=== PATIENT | male | born 1940 | race Caucasian/White ===

== ENCOUNTER 2016-10-19 23:03 | Emergency (ER) | payer BC ==
[~2016-10-19] VITALS: Ht 175.3 cm; Wt 118.8 kg
[2016-10-19 23:12] VITALS: BP 156/69
[2016-10-19] MEDS ORDERED: CYCL5TAB PO (23:46)
--- NOTE | 2016-10-19 23:46 | PHYS DOC ---
Past Medical History Past Medical History: CVA, Diabetes-Type II, Hypertension, Other Additional Past Medical Histor: EMPHYSEMA Past Surgical History: Other Additional Past Surgical Histo: R ANKLE Alcohol Use: Heavy Drug Use: None Adult General Chief Complaint Chief Complaint: Neck Pain [facility] HPI Patient is a 76 year old male presents to the emergency department stating that he has having left upper back and neck pain. He states that he fell asleep in his chair at home on Monday night watching TV and on Monday he developed the pain and discomfort. Patient has not taken anything for the pain or discomfort. He is unable to describe the pain. He denies any numbness or tingling into his extremities. Patient denies any trauma or injuries to his back. Patient denies any fever, chills or any nausea vomiting. Review of Systems Review of Systems Constitutional: Denies fever or chills [] Eyes: Denies change in visual acuity, redness, or eye pain [] HENT: Denies nasal congestion or sore throat [] Respiratory: Denies cough or shortness of breath [] Cardiovascular: No additional information not addressed in HPI [] GI: Denies abdominal pain, nausea, vomiting, bloody stools or diarrhea [] : Denies dysuria or hematuria [] Musculoskeletal: Left upper back and neck pain denies joint pain Integument: Denies rash or skin lesions [] Neurologic: Denies headache, focal weakness or sensory changes [] Endocrine: Denies polyuria or polydipsia [] Physical Exam Physical Exam Constitutional: Well developed, well nourished, no acute distress, non-toxic appearance. [] HENT: Normocephalic, atraumatic, bilateral external ears normal, oropharynx moist, no oral exudates, nose normal. [] Eyes: PERRLA, EOMI, conjunctiva normal, no discharge. [] Neck: Normal range of motion, no tenderness, supple, no stridor. [] Cardiovascular:Heart rate regular rhythm, no murmur [] Lungs & Thorax: Bilateral breath sounds clear to auscultation [] Skin: Warm, dry, no erythema, no rash. [] Back: No cervical spine, thoracic spine tenderness, no crepitus, no deformities no step-offs noted. Patient did have tenderness in the left upper shoulder to back area up into the paraspinal area of the neck. Patient with increase tenderness noted when turning his head to the left into the right. Patient is able to put his chin to his chest with minimal discomfort. Extremities: No tenderness, no cyanosis, no clubbing, ROM intact, no edema. [] Neurologic: Alert and oriented X 3, normal motor function, normal sensory function, no focal deficits noted. [] Psychologic: Affect normal, judgement normal, mood normal. [] Current Patient Data Vital Signs Vital Signs Date Time Temp Pulse Resp B/P (MAP) Pulse Ox O2 Delivery O2 Flow Rate FiO2 10/19/16 23:12 98.1 73 22 92 Room Air 98.1 EKG EKG [] Radiology/Procedures Radiology/Procedures [] Course & Med Decision Making Course & Med Decision Making Pertinent Labs and Imaging studies reviewed. (See chart for details) Patient will be provided with Flexeril 5 mg to take as needed for muscle spasms and discomfort. Recommended ibuprofen 400 mg every 8 hours. Patient was instructed Flexeril will cause drowsiness do not take any be alert and oriented. Also recommended ice packs or warm moist packs to the area several times a day. Patient will be discharged home in stable condition signs and symptoms to return back to emergency department been provided. Patient was encouraged to follow-up with his primary care in 7-10 days. Patient agrees with discharge instructions treatment regimens and follow-up recommendations. All questions and concerns were answered patient's bedside. [] Dragon Disclaimer Dragon Disclaimer This electronic medical record was generated, in whole or in part, using a voice recognition dictation system. Departure Departure Impression: Primary Impression: Acute torticollis Disposition: 01 HOME, SELF-CARE Condition: STABLE Referrals: ROCHELLE LAWRENCE MD (PCP) Patient Instructions: Torticollis, Acute Additional Instructions: Activity as tolerated. Medications as prescribed. Ibuprofen 400 mg every 8 hours with food stop taking if you develop an upset stomach. Ice packs on 20 minutes off 20 minutes several times a day. He may also use warm moist packs to help with the pain and discomfort. Follow-up with your primary care physician in the next 7-10 days if he continued have pain and discomfort. Scripts Cyclobenzaprine Hcl (CYCLOBENZAPRINE HCL) 5 Mg Tablet 1 TAB PO TID Y for MUSCLE SPASMS, #20 TAB Prov: LORNE BOLIVAR [employer] 10/19/16 LORNE BOLIVAR APRN Oct 19, 2016 23:46
== END 2016-10-19 23:57 | disposition home or self-care (01) ==
LOC: ER 23:03
DX: M43.6 Torticollis (principal); M54.6 Pain in thoracic spine; E11.9 Type 2 diabetes mellitus without complications; J43.9 Emphysema, unspecified; I10 Essential (primary) hypertension; F10.10 Alcohol abuse, uncomplicated; Z86.73 Personal history of transient ischemic attack (TIA), and cerebral infarction without residual deficits
CPT/HCPCS: 99283

== ENCOUNTER 2016-12-01 22:34 | Emergency (ER) | payer BC ==
[~2016-12-01 22:34] MED LIST: CYCL5TAB PO
[2016-12-01] MEDS ORDERED: PRED20TA PO (23:13)
[2016-12-01] MEDS ORDERED: CEPH500T PO (23:13)
[2016-12-01] MEDS ORDERED: DIPH25CA58 PO (23:13)
--- NOTE | 2016-12-01 23:13 | PHYS DOC ---
Past Medical History Past Medical History: CVA, Diabetes-Type II, Hypertension, Other Additional Past Medical Histor: EMPHYSEMA Past Surgical History: Other Additional Past Surgical Histo: R ANKLE Alcohol Use: Heavy Drug Use: None Adult General Chief Complaint Chief Complaint: INSECT BITE HPI HPI Patient is a 76 year old male presents to the emergency department with c/o itching and discomfort to the right hand. Patient states this started yesterday while at work. He denies drainage or discharge from the site. He is concerned about an infection. Review of Systems Review of Systems Constitutional: Denies fever or chills [] Eyes: Denies change in visual acuity, redness, or eye pain [] HENT: Denies nasal congestion or sore throat [] Respiratory: Denies cough or shortness of breath [] Cardiovascular: No additional information not addressed in HPI [] GI: Denies abdominal pain, nausea, vomiting, bloody stools or diarrhea [] : Denies dysuria or hematuria [] Musculoskeletal: Denies back pain or joint pain [] Integument: Denies rash or skin lesions. C/o redness noted to the right palm Neurologic: Denies headache, focal weakness or sensory changes [] Endocrine: Denies polyuria or polydipsia [] Allergies Allergies Allergies Coded Allergies Type Severity Reaction Last Updated Verified No Known Drug Allergies 12/01/16 No Physical Exam Physical Exam Constitutional: Well developed, well nourished, no acute distress, non-toxic appearance. [] HENT: Normocephalic, atraumatic, bilateral external ears normal, oropharynx moist, no oral exudates, nose normal. [] Eyes: PERRLA, EOMI, conjunctiva normal, no discharge. [] Neck: Normal range of motion, no tenderness, supple, no stridor. [] Cardiovascular:Heart rate regular rhythm, no murmur [] Lungs & Thorax: Bilateral breath sounds clear to auscultation [] Abdomen: Bowel sounds normal, soft, no tenderness, no masses, no pulsatile masses. [] Skin: Warm, dry, no erythema, no rash. Right hand with redness and irritation, slight drainage noted from the site. Patient will full ROM to right hand. Area appears to ivelisse no raised areas. Extremities: No tenderness, no cyanosis, no clubbing, ROM intact, no edema. [] Neurologic: Alert and oriented X 3, normal motor function, normal sensory function, no focal deficits noted. [] Psychologic: Affect normal, judgement normal, mood normal. [] EKG EKG [] Radiology/Procedures Radiology/Procedures [] Course & Med Decision Making Course & Med Decision Making Pertinent Labs and Imaging studies reviewed. (See chart for details) Patient will be discharged home in stable condition. Patient will be provided with prednisone, keflex with recommendations for benadryl. Keep the areas clean dry and cool. Signs and symptoms to return to the emergency department has been provided. All questions and concerns have been answered at patients bedside. Patient agrees with discharge instructions treatment regimen and followup recommendations. [] Dragon Disclaimer Dragon Disclaimer This electronic medical record was generated, in whole or in part, using a voice recognition dictation system. Departure Departure Impression: Primary Impression: Contact dermatitis Disposition: HOME, SELF-CARE Condition: STABLE Referrals: ROCHELLE LAWRENCE MD (PCP) Patient Instructions: Contact Dermatitis, [id number] Additional Instructions: Activity as tolerated Medication as prescribed Benadryl will cause drowsiness do not take if you need to be alert and oriented Keep the areas clean dry and cool Followup with primary care provider in 3-5 days Return to emergency department as needed for signs and symptoms that become worse. Scripts Cephalexin (CEPHALEXIN) 500 Mg Tablet 1 TAB PO BID, #20 TAB Prov: LORNE BOLIVAR APRN 12/01/16 Prednisone (PREDNISONE) 20 Mg Tablet 40 MG PO DAILY for 7 Days, #14 TAB Prov: LORNE BOLIVAR APRN 12/01/16 Diphenhydramine Hcl (BENADRYL) 25 Mg Capsule 1 CAP PO QHS, #10 CAP 0 Refills Prov: LORNE BOLIVAR APRN 12/01/16 Problem Qualifiers Primary Impression: Contact dermatitis Contact dermatitis type: unspecified Contact dermatitis trigger: unspecified trigger Qualified Codes: L25.9 - Unspecified contact dermatitis, unspecified cause LORNE BOLIVAR APRN Dec 01, 2016 23:13
== END 2016-12-01 23:25 | disposition home or self-care (01) ==
LOC: ER 22:34
DX: L25.9 Unspecified contact dermatitis, unspecified cause (principal); I10 Essential (primary) hypertension; E11.9 Type 2 diabetes mellitus without complications; J43.9 Emphysema, unspecified; Z86.73 Personal history of transient ischemic attack (TIA), and cerebral infarction without residual deficits
CPT/HCPCS: 99283

== ENCOUNTER 2019-01-10 18:02 | Inpatient (IN) | payer BC, MEDICARE ==
[~2019-01-10] VITALS: Ht 175.3 cm; Wt 120.2 kg
[~2019-01-10 18:02] MED LIST changes: +CEPH500T PO; +DIPH25CA58 PO; +PRED20TA PO
--- NOTE | 2019-01-10 18:38 | PHYS DOC ---
Past Medical History Past Medical History: COPD, CVA, Diabetes-Type II, Hypertension, Other Additional Past Medical Histor: EMPHYSEMA Past Surgical History: Other Additional Past Surgical Histo: R ANKLE Alcohol Use: Heavy Drug Use: None Adult General Chief Complaint Chief Complaint: ALTERED MENTAL STATUS HPI HPI 78-year-old male presents to the emergency department with altered mental status, intermittent. Unknown exact onset. Patient was seen at primary care physician's office today prescribe antibiotics as well as inhaler. His granddaughter was called by his primary care physician with recommendations to check on him daily. If he had not improved in next 2-3 days patient should be evaluated again and possibly admitted to the hospital. Patient slow to respond NIH is 1 secondary to answering wrong month. Otherwise NIH exam is unremarkable. Patient denies any complaints of chest pain, nausea, vomiting. He does have some shortness of breath, cough, saturations on room air when he got here 84%. Patient is supposed to have oxygen therapy at home 2-3 L (chronic) however granddaughter states he does not wear. Nothing makes his symptoms worse, nothing makes them better. Review of Systems Review of Systems Constitutional: Denies fever or chills [] Eyes: Denies change in visual acuity, redness, or eye pain [] HENT: Congestion Respiratory: Cough/SOB Cardiovascular: No additional information not addressed in HPI [] GI: Denies abdominal pain, nausea, vomiting, bloody stools or diarrhea [] : Denies dysuria or hematuria [] Musculoskeletal: Denies back pain or joint pain [] Integument: Denies rash or skin lesions [] Neurologic: Denies headache, focal weakness or sensory changes [] All other systems were reviewed and found to be within normal limits, except as documented in this note. Current Medications Current Medications Current Medications Medications (Trade) Dose Ordered Sig/Anthony Start Time Stop Time Status Last Admin Dose Admin Albuterol/ Ipratropium (Duoneb) 3 ml 1X ONCE 01/10/19 18:45 01/10/19 18:46 DC 01/10/19 18:49 3 ML Allergies Allergies Allergies Coded Allergies Type Severity Reaction Last Updated Verified No Known Drug Allergies 12/01/16 No Physical Exam Physical Exam Constitutional: Well developed, well nourished, no acute distress, non-toxic appearance. [] HENT: Normocephalic, atraumatic, bilateral external ears normal, oropharynx moist, no oral exudates, nose normal. [] Eyes: PERRLA, EOMI, conjunctiva normal, no discharge. [] Cardiovascular:Heart rate regular rhythm, no murmur [] Lungs & Thorax: Bilateral breath sounds clear to auscultation [] Abdomen: Bowel sounds normal, soft, no tenderness, no masses, no pulsatile masses. [] Skin: Warm, dry, no erythema, no rash. [] Back: No tenderness, no CVA tenderness. [] Extremities: No tenderness, no edema. [] Neurologic: Alert and oriented X 3, no focal deficits noted. [] Psychologic: Affect normal, judgement normal, mood normal. [] Current Patient Data Vital Signs Vital Signs Date Time Temp Pulse Resp B/P (MAP) Pulse Ox O2 Delivery O2 Flow Rate FiO2 01/10/19 18:47 96 Nasal Cannula 4.0 01/10/19 18:03 97.8 80 14 158/72 (100) 97.8 Lab Values Laboratory Tests Test 01/10/19 19:10 01/10/19 19:11 White Blood Count 12.1 x10^3/uL (4.0-11.0) H Red Blood Count 5.74 x10^6/uL (4.30-5.70) H Hemoglobin 17.8 g/dL (13.0-17.5) H Hematocrit 53.3 % (39.0-53.0) H Mean Corpuscular Volume 93 fL (79-100) Mean Corpuscular Hemoglobin 31 pg (25-35) Mean Corpuscular Hemoglobin Concent 33 g/dL (31-37) Red Cell Distribution Width 14.0 % (11.5-14.5) Platelet Count 176 x10^3/uL (140-400) Neutrophils (%) (Auto) 82 % (31-73) H Lymphocytes (%) (Auto) 8 % (24-48) L Monocytes (%) (Auto) 9 % (0-9) Eosinophils (%) (Auto) 1 % (0-3) Basophils (%) (Auto) 1 % (0-3) Neutrophils # (Auto) 9.9 x10^3/uL (1.8-7.7) H Lymphocytes # (Auto) 1.0 x10^3/uL (1.0-4.8) Monocytes # (Auto) 1.1 x10^3/uL (0.0-1.1) Eosinophils # (Auto) 0.1 x10^3/uL (0.0-0.7) Basophils # (Auto) 0.1 x10^3/uL (0.0-0.2) Sodium Level 135 mmol/L (136-145) L Potassium Level 4.7 mmol/L (3.5-5.1) Chloride Level 98 mmol/L (98-107) Carbon Dioxide Level 30 mmol/L (21-32) Anion Gap 7 (6-14) Blood Urea Nitrogen 23 mg/dL (8-26) Creatinine 1.3 mg/dL (0.7-1.3) Estimated GFR (Cockcroft-Gault) 53.4 BUN/Creatinine Ratio 18 (6-20) Glucose Level 166 mg/dL (70-99) H Calcium Level 9.5 mg/dL (8.5-10.1) Total Bilirubin 0.7 mg/dL (0.2-1.0) Aspartate Amino Transferase (AST) 13 U/L (15-37) L Alanine Aminotransferase (ALT) 26 U/L (16-63) Alkaline Phosphatase 58 U/L (46-116) Troponin I Quantitative < 0.017 ng/mL (0.000-0.055) ZE-Hwp-A-Type Natriuretic Peptide 119 pg/mL (0-449) Total Protein 7.9 g/dL (6.4-8.2) Albumin 4.0 g/dL (3.4-5.0) Albumin/Globulin Ratio 1.0 (1.0-1.7) Urine Collection Type Void Urine Color Yellow Urine Clarity Clear Urine pH 6.0 Urine Specific Hancock 1.015 Urine Protein 30 mg/dL (NEG-TRACE) Urine Glucose (UA) Negative mg/dL (NEG) Urine Ketones (Stick) Negative mg/dL (NEG) Urine Blood Large (NEG) Urine Nitrite Negative (NEG) Urine Bilirubin Negative (NEG) Urine Urobilinogen Dipstick 1.0 mg/dL (0.2 mg/dL) Urine Leukocyte Esterase Moderate (NEG) Urine RBC >40 /HPF (0-2) Urine WBC 11-20 /HPF (0-4) Urine Squamous Epithelial Cells Occ /LPF Urine Bacteria Many /HPF (0-FEW) Laboratory Tests 01/10/19 19:10 Laboratory Tests 01/10/19 19:10 EKG EKG EKG reviewed, normal sinus rhythm, left axis deviation, no evidence of acute ST elevation PA appreciated, nonurgent EKG, interpretation time 184[] Radiology/Procedures Radiology/Procedures [facility] [address] [place] [address] IMAGING REPORT Signed PATIENT: LONG WALLACE EACCOUNT: [id number] : 1940 LOCATION: ER AGE: 78 SEX: M EXAM STATUS: REG ER ORD. PHYSICIAN: MELONY ALEXANDER MD REASON: AMS, DIFFICULTY HOLDING STILL PROCEDURE: CT HEAD WO CONTRAST Examination: CT HEAD WO CONTRAST History: Altered mental status Comparison/Correlation: 11/16/2008 CT head without contrast Findings: Axial images of the head were obtained without contrast. Mild atrophy is present. No intracranial hemorrhage, midline shift, or mass effect although evaluation may be limited to the vertex due to motion. The right middle cerebral artery is somewhat dense as compared to the left middle cerebral artery but this is similar for correlation with the previous exam. Small left basal ganglia lacunar infarct is suggested but stable. Bony structures are unremarkable. Cavernous carotid calcification noted. Impression: No acute process. PQRS Compliance Statement: One or more of the following individualized dose reduction techniques were utilized for this examination: 1. Automated exposure control 2. Adjustment of the mA and/or kV according to patient size 3. Use of iterative reconstruction technique Electronically signed by: Raghavendra Barry MD (01/10/2019 7:57 PM) [facility] DICTATED and SIGNED BY: RAGHAVENDRA BARRY MD DATE: 01/10/191956 [] Course & Med Decision Making Course & Med Decision Making Pertinent Labs and Imaging studies reviewed. (See chart for details) []78-year-old male presents to the emergency department with altered mental sta tus, intermittent. Unknown exact onset. Patient was seen at primary care physician's office today prescribe antibiotics as well as inhaler. His granddaughter was called by his primary care physician with recommendations to check on him daily. If he had not improved in next 2-3 days patient should be evaluated again and possibly admitted to the hospital. Patient slow to respond NIH is 1 secondary to answering wrong month. Otherwise NIH exam is unremarkable. Patient denies any complaints of chest pain, nausea, vomiting. He does have some shortness of breath, cough, saturations on room air when he got here 84%. Patient is supposed to have oxygen therapy at home 2-3 L (chronic) however granddaughter states he does not wear. Nothing makes his symptoms worse, nothing makes them better. Patient improved with O2 94 - 97% on 3 - 4L NC Labs with evidence fo UTI, WBC 12.1 Re-evaluation of patient - confused, peed all over the floor, states he needs to use the restroom Discussed admit with patient Mihaela Disclaimer Dragcharo Disclaimer This electronic medical record was generated, in whole or in part, using a voice recognition dictation system. NIHSS Stroke Scale NIH Stroke Scale: NIH Stroke Scale Response (Comments) Value Level of Consciousness: 0 Alert/Responsive 0 LOC Questions: 1 Answers one correctly 1 LOC Commands: 0 Performs both tasks 0 Best Gaze: 0 Normal 0 Visual: 0 No visual loss 0 Facial Palsy: 0 Normal, symmetrical 0 Motor - Left Arm 0 No drift 0 Motor - Right Arm 0 No drift 0 Motor - Left Leg 0 No drift 0 Limb Ataxia: 0 Absent 0 Sensory: 0 No loss 0 Best Language: 0 Normal 0 Dysathria: 0 Normal 0 Extinction and Inattention: 0 Normal 0 Total 1 Departure Departure Impression: Primary Impression: AMS (altered mental status) Additional Impressions: UTI (urinary tract infection) Chronic respiratory failure Disposition: 09 ADMITTED INPATIENT Admitting Physician: [facility] [place] Referrals: ROCHELLE LAWRENCE MD (PCP) Problem Qualifiers Primary Impression: AMS (altered mental status) Altered mental status type: unspecified Qualified Codes: R41.82 - Altered mental status, unspecified Additional Impressions: UTI (urinary tract infection) Urinary tract infection type: site unspecified Hematuria presence: without hematuria Qualified Codes: N39.0 - Urinary tract infection, site not specified Chronic respiratory failure Respiratory failure complication: hypoxia Qualified Codes: J96.11 - Chronic respiratory failure with hypoxia MELONY ALEXANDER MD Jan 10, 2019 18:38
[2019-01-10] MEDS ORDERED: IPRATRPIUM/ALBUTEROL 0.5/2.5MG 3 ML NEBU. NEB ONE (18:45)
[2019-01-10 19:22] LABS: BASO # 0.1 x10^3/uL (0.0-0.2); BASO % 1 % (0-3); EOS # 0.1 x10^3/uL (0.0-0.7); EOS % 1 % (0-3); HEMATOCRIT 53.3 % (39.0-53.0); HEMOGLOBIN 17.8 g/dL (13.0-17.5); LYMPH % 8 % (24-48); MEAN CORPUSCULAR HEMOGLOBIN 31 pg (25-35); MEAN CORPUSCULAR HGB CONC 33 g/dL (31-37); MEAN CORPUSCULAR VOLUME 93 fL (79-100); MONO # 1.1 x10^3/uL (0.0-1.1); MONO % 9 % (0-9); NEUT # 9.9 x10^3/uL (1.8-7.7); NEUT % 82 % (31-73); PLATELET COUNT 176 x10^3/uL (140-400); RED BLOOD COUNT 5.74 x10^6/uL (4.30-5.70); WHITE BLOOD COUNT 12.1 x10^3/uL (4.0-11.0)
[2019-01-10 19:28] LABS: BILIRUBIN,URINE NEGATIVE (NEG); CLARITY,URINE CLEAR; COLOR,URINE YELLOW; NITRITE,URINE NEGATIVE (NEG); PROTEIN,URINE 30 mg/dL (NEG-TRACE)
[2019-01-10 19:37] LABS: CALCIUM 9.5 mg/dL (8.5-10.1); CREATININE 1.3 mg/dL (0.7-1.3); GFR 53.4; POTASSIUM 4.7 mmol/L (3.5-5.1)
[2019-01-10 19:39] LABS: RBC,URINE >40 /HPF (0-2)
[2019-01-10 19:40] LABS: BACTERIA,URINE MANY /HPF (0-FEW); SQUAMOUS EPITHELIAL CELL,UR OCC /LPF
[2019-01-10 19:41] LABS: TOTAL BILIRUBIN 0.7 mg/dL (0.2-1.0); TOTAL PROTEIN 7.9 g/dL (6.4-8.2)
--- NOTE | 2019-01-10 20:00 | RAD ---
Examination: CT HEAD WO CONTRAST History: Altered mental status Comparison/Correlation: 11/16/2008 CT head without contrast Findings: Axial images of the head were obtained without contrast. Mild atrophy is present. No intracranial hemorrhage, midline shift, or mass effect although evaluation may be limited to the vertex due to motion. The right middle cerebral artery is somewhat dense as compared to the left middle cerebral artery but this is similar for correlation with the previous exam. Small left basal ganglia lacunar infarct is suggested but stable. Bony structures are unremarkable. Cavernous carotid calcification noted. Impression: No acute process. PQRS Compliance Statement: One or more of the following individualized dose reduction techniques were utilized for this examination: 1. Automated exposure control 2. Adjustment of the mA and/or kV according to patient size 3. Use of iterative reconstruction technique Electronically signed by: Raghavendra Mitchell MD (01/10/2019 7:57 PM) [facility]
--- NOTE | 2019-01-10 20:24 | RAD ---
Examination: PORTABLE CHEST 1V History: Cough and shortness of breath Comparison/Correlation: 11/16/2008 chest x-ray exam Findings: Portable semiupright frontal view of the chest was obtained. Heart size enlarged. No pneumothorax. Evaluation of the lung bases is limited due to underpenetrated technique. Right costophrenic angle was not fully included on this exam limiting assessment. No significant pleural effusion. Retrocardiac linear atelectasis or infiltrate appears to be present. Retrocardiac opacity which raises question of hiatal hernia noted. Impression: Bibasal retrocardiac linear atelectasis or possibly infiltrate. Electronically signed by: Raghavendra Mitchell MD (01/10/2019 8:21 PM) [facility]
[2019-01-10] MEDS ORDERED: cefTRIAXone IV Push 1 GM VIAL. IVP ONE (20:30)
[2019-01-10] MEDS ORDERED: ACETAMINOPHEN 500 MG TABLET PO ONE (20:45)
[2019-01-10] MEDS ORDERED: ONDANSETRON PF 4 MG/2 ML VIAL. IV PRN (20:45)
[2019-01-10] MEDS ORDERED: ACETAMINOPHEN 325 MG TABLET. PO PRN (20:45)
[2019-01-10 23:03] VITALS: BP 124/58
[2019-01-11 03:57] VITALS: BP 146/66
[2019-01-11 05:09] LABS: BASO # 0.1 x10^3/uL (0.0-0.2); BASO % 1 % (0-3); EOS % 0 % (0-3); HEMATOCRIT 55.6 % (39.0-53.0); HEMOGLOBIN 18.6 g/dL (13.0-17.5); LYMPH # 0.9 x10^3/uL (1.0-4.8); LYMPH % 7 % (24-48); MEAN CORPUSCULAR HEMOGLOBIN 32 pg (25-35); MEAN CORPUSCULAR HGB CONC 34 g/dL (31-37); MEAN CORPUSCULAR VOLUME 94 fL (79-100); MONO # 1.2 x10^3/uL (0.0-1.1); MONO % 10 % (0-9); NEUT # 10.1 x10^3/uL (1.8-7.7); NEUT % 82 % (31-73); PLATELET COUNT 147 x10^3/uL (140-400); RED BLOOD COUNT 5.92 x10^6/uL (4.30-5.70); RED CELL DISTRIBUTION WIDTH 14.1 % (11.5-14.5); WHITE BLOOD COUNT 12.2 x10^3/uL (4.0-11.0)
[2019-01-11 05:33] LABS: ALBUMIN 4.1 g/dL (3.4-5.0); ALBUMIN/GLOBULIN RATIO 0.9 (1.0-1.7); CALCIUM 9.6 mg/dL (8.5-10.1); CREATININE 1.3 mg/dL (0.7-1.3); GFR 53.4; POTASSIUM 4.4 mmol/L (3.5-5.1); TOTAL PROTEIN 8.5 g/dL (6.4-8.2)
--- NOTE | 2019-01-11 06:15 | EKG ---
[facility] [address] [place] [address] Test Date: 2019-01-10 Test Time: 18:14:30 Pat Name: LONG WALLACE Department: Room: Gender: M Recreation Therapy Aide: : 1940 Requested By: MELONY ALEXANDER Order Number: [id number] Reading MD: Measurements Intervals [place] Rate: 78 P: 28 W[place]: 186 QRS: -41 QRSD: 80 T: 47 QT: 340 QTc: 391 Interpretive Statements SINUS RHYTHM ABNORMAL LEFT AXIS DEVIATION R-S TRANSITION ZONE IN V LEADS DISPLACED TO THE LEFT LEFT ANTERIOR FASCICULAR BLOCK QRS(T) CONTOUR ABNORMALITY CONSIDER ANTEROSEPTAL MYOCARDIAL DAMAGE ABNORMAL ECG RI6.01 No previous ECG available for comparison
[2019-01-11] MEDS: IPRATRPIUM/ALBUTEROL 0.5/2.5MG 3 ML NEBU. NEB SCH ×4 (08:00→20:25)
[2019-01-11] MEDS ORDERED: FLU VAX QS 2019-20 (36MOS+)/PF 0.5 ML SYRINGE. VAX IM ONE (09:00)
--- NOTE | 2019-01-11 10:01 | PDOC1 ---
History and Physical Date of Admission Date of Admission DATE: 01/11/19 TIME: 10:01 Identification/Chief Complaint Chief Complaint seen in ER , presents to the emergency department with altered mental status, intermittent. Unknown exact onset. Patient was seen at primary care physician's office 01/10 prescribe antibiotics as well as inhaler. His granddaughter was called by his primary care physician with recommendations to check on him daily. If he had not improved in next 2-3 days patient should be evaluated again and possibly admitted to the hospital. Patient slow to respond NIH is 1 secondary to answering wrong month. Otherwise NIH exam is unremarkable. Past Medical History Past Medical History Past Medical History Past Medical History Past Medical History: COPD, CVA, Diabetes-Type II, Hypertension, Other Additional Past Medical Histor: EMPHYSEMA Past Surgical History: Other Additional Past Surgical Histo: R ANKLE Alcohol Use: Heavy Drug Use: None family hx obesity Family History Family History: Hypertension Social History Smoke: No ALCOHOL: none Drugs: None Current Problem List Problem List Problems Medical Problems: (1) AMS (altered mental status) Status: Acute (2) Chronic respiratory failure Status: Acute (3) UTI (urinary tract infection) Status: Acute Current Medications Current Medications Current Medications Albuterol/ Ipratropium (Duoneb) 3 ml 1X ONCE NEB Last administered on 01/10/19at 18:49; Start 01/10/19 at 18:45; Stop 01/10/19 at 18:46; Status DC Ceftriaxone Sodium (Rocephin) 1 gm 1X ONCE IVP Last administered on 01/10/19at 20:49; Start 01/10/19 at 20:30; Stop 01/10/19 at 20:35; Status DC Ondansetron HCl (Zofran) 4 mg PRN Q8HRS PRN IV NAUSEA/VOMITING; Start 01/10/19 at 20:45; Stop 01/11/19 at 20:44 Acetaminophen (Tylenol) 650 mg PRN Q4HRS PRN PO FEVER; Start 01/10/19 at 20:45; Stop 01/11/19 at 20:44 Albuterol/ Ipratropium (Duoneb) 3 ml RTQID NEB Last administered on 01/11/19at 08:00; Start 01/11/19 at 08:00; Stop 01/12/19 at 07:59 Acetaminophen (Tylenol) 1,000 mg 1X ONCE PO Last administered on 01/10/19at 20: 51; Start 01/10/19 at 20:45; Stop 01/10/19 at 20:46; Status DC Influenza Virus Vaccine Quadrival (Afluria Quad 2018- (3yr Up) Syringe) 0.5 ml ONCE ONCE VAX IM ; Start 01/11/19 at 09:00; Stop 01/11/19 at 09:01; Status DC Active Scripts Active Cephalexin 500 Mg Tablet 1 Tab PO BID Prednisone 20 Mg Tablet 40 Mg PO DAILY 7 Days Benadryl (Diphenhydramine Hcl) 25 Mg Capsule 1 Cap PO QHS Cyclobenzaprine Hcl 5 Mg Tablet 1 Tab PO TID PRN Allergies Allergies: Coded Allergies: No Known Drug Allergies (Unverified , 12/01/16) ROS Review of System Review of Systems Review of Systems Constitutional: POS fever or chills [] Eyes: Denies change in visual acuity, redness, or eye pain [] HENT: Congestion Respiratory: Cough/SOB Cardiovascular: No additional information not addressed in HPI [] GI: Denies abdominal pain, nausea, vomiting, bloody stools or diarrhea [] : Denies dysuria or hematuria [] Musculoskeletal: Denies back pain or joint pain [] Integument: Denies rash or skin lesions [] Neurologic: Denies headache, focal weakness or sensory changes [] 14 PT systems were reviewed and found to be within normal limits, except as documented Physical Exam Physical Exam Physical Exam Physical Exam Constitutional: Well developed, well nourished, no acute distress, non-toxic appearance. [] HENT: Normocephalic, atraumatic, bilateral external ears normal, oropharynx moist, no oral exudates, nose normal. [] Eyes: PERRLA, EOMI, conjunctiva normal, no discharge. [] Cardiovascular:Heart rate regular rhythm, no murmur [] Lungs & Thorax: Bilateral breath sounds clear to auscultation [] Abdomen: Bowel sounds normal, soft, no tenderness, no masses, no pulsatile masses. [] Skin: Warm, dry, no erythema, no rash. [] Back: No tenderness, no CVA tenderness. [] Extremities: No tenderness, no edema. [] Neurologic: Alert and oriented X 3, no focal deficits noted. [] Psychologic: Affect normal, judgement normal, mood normal. [] General: Cooperative HEENT: Atraumatic Abdomen: Soft Rectal Exam: not examined Extremities: No cyanosis Neuro: Cranial nerves 3-12 NL Vitals Vitals Vital Signs Date Time Temp Pulse Resp B/P (MAP) Pulse Ox O2 Delivery O2 Flow Rate FiO2 01/11/19 08:00 95 Nasal Cannula 4.0 01/11/19 03:57 98.1 92 20 146/66 (92) 98.1 Labs Labs Laboratory Tests Test 01/10/19 19:07 01/10/19 19:10 01/10/19 19:11 01/11/19 04:10 Lactic Acid Level 1.1 mmol/L (0.4-2.0) White Blood Count 12.1 x10^3/uL (4.0-11.0) 12.2 x10^3/uL (4.0-11.0) Red Blood Count 5.74 x10^6/uL (4.30-5.70) 5.92 x10^6/uL (4.30-5.70) Hemoglobin 17.8 g/dL (13.0-17.5) 18.6 g/dL (13.0-17.5) Hematocrit 53.3 % (39.0-53.0) 55.6 % (39.0-53.0) Mean Corpuscular Volume 93 fL (79-100) 94 fL (79-100) Mean Corpuscular Hemoglobin 31 pg (25-35) 32 pg (25-35) Mean Corpuscular Hemoglobin Concent 33 g/dL (31-37) 34 g/dL (31-37) Red Cell Distribution Width 14.0 % (11.5-14.5) 14.1 % (11.5-14.5) Platelet Count 176 x10^3/uL (140-400) 147 x10^3/uL (140-400) Neutrophils (%) (Auto) 82 % (31-73) 82 % (31-73) Lymphocytes (%) (Auto) 8 % (24-48) 7 % (24-48) Monocytes (%) (Auto) 9 % (0-9) 10 % (0-9) Eosinophils (%) (Auto) 1 % (0-3) 0 % (0-3) Basophils (%) (Auto) 1 % (0-3) 1 % (0-3) Neutrophils # (Auto) 9.9 x10^3/uL (1.8-7.7) 10.1 x10^3/uL (1.8-7.7) Lymphocytes # (Auto) 1.0 x10^3/uL (1.0-4.8) 0.9 x10^3/uL (1.0-4.8) Monocytes # (Auto) 1.1 x10^3/uL (0.0-1.1) 1.2 x10^3/uL (0.0-1.1) Eosinophils # (Auto) 0.1 x10^3/uL (0.0-0.7) 0.0 x10^3/uL (0.0-0.7) Basophils # (Auto) 0.1 x10^3/uL (0.0-0.2) 0.1 x10^3/uL (0.0-0.2) Sodium Level 135 mmol/L (136-145) 135 mmol/L (136-145) Potassium Level 4.7 mmol/L (3.5-5.1) 4.4 mmol/L (3.5-5.1) Chloride Level 98 mmol/L (98-107) 97 mmol/L (98-107) Carbon Dioxide Level 30 mmol/L (21-32) 29 mmol/L (21-32) Anion Gap 7 (6-14) 9 (6-14) Blood Urea Nitrogen 23 mg/dL (8-26) 21 mg/dL (8-26) Creatinine 1.3 mg/dL (0.7-1.3) 1.3 mg/dL (0.7-1.3) Estimated GFR (Cockcroft-Gault) 53.4 53.4 BUN/Creatinine Ratio 18 (6-20) 16 (6-20) Glucose Level 166 mg/dL (70-99) 191 mg/dL (70-99) Calcium Level 9.5 mg/dL (8.5-10.1) 9.6 mg/dL (8.5-10.1) Total Bilirubin 0.7 mg/dL (0.2-1.0) 1.0 mg/dL (0.2-1.0) Aspartate Amino Transf (AST/SGOT) 13 U/L (15-37) 15 U/L (15-37) Alanine Aminotransferase (ALT/SGPT) 26 U/L (16-63) 26 U/L (16-63) Alkaline Phosphatase 58 U/L (46-116) 65 U/L (46-116) Troponin I Quantitative < 0.017 ng/mL (0.000-0.055) TY-Lmg-P-Type Natriuretic Peptide 119 pg/mL (0-449) Total Protein 7.9 g/dL (6.4-8.2) 8.5 g/dL (6.4-8.2) Albumin 4.0 g/dL (3.4-5.0) 4.1 g/dL (3.4-5.0) Albumin/Globulin Ratio 1.0 (1.0-1.7) 0.9 (1.0-1.7) Urine Collection Type Void Urine Color Yellow Urine Clarity Clear Urine pH 6.0 Urine Specific [place] 1.015 Urine Protein 30 mg/dL (NEG-TRACE) Urine Glucose (UA) Negative mg/dL (NEG) Urine Ketones (Stick) Negative mg/dL (NEG) Urine Blood Large (NEG) Urine Nitrite Negative (NEG) Urine Bilirubin Negative (NEG) Urine Urobilinogen Dipstick 1.0 mg/dL (0.2 mg/dL) Urine Leukocyte Esterase Moderate (NEG) Urine RBC >40 /HPF (0-2) Urine WBC 11-20 /HPF (0-4) Urine Squamous Epithelial Cells Occ /LPF Urine Bacteria Many /HPF (0-FEW) Laboratory Tests Test 01/10/19 19:07 01/10/19 19:10 01/10/19 19:11 01/11/19 04:10 Lactic Acid Level 1.1 mmol/L (0.4-2.0) White Blood Count 12.1 x10^3/uL (4.0-11.0) 12.2 x10^3/uL (4.0-11.0) Red Blood Count 5.74 x10^6/uL (4.30-5.70) 5.92 x10^6/uL (4.30-5.70) Hemoglobin 17.8 g/dL (13.0-17.5) 18.6 g/dL (13.0-17.5) Hematocrit 53.3 % (39.0-53.0) 55.6 % (39.0-53.0) Mean Corpuscular Volume 93 fL (79-100) 94 fL (79-100) Mean Corpuscular Hemoglobin 31 pg (25-35) 32 pg (25-35) Mean Corpuscular Hemoglobin Concent 33 g/dL (31-37) 34 g/dL (31-37) Red Cell Distribution Width 14.0 % (11.5-14.5) 14.1 % (11.5-14.5) Platelet Count 176 x10^3/uL (140-400) 147 x10^3/uL (140-400) Neutrophils (%) (Auto) 82 % (31-73) 82 % (31-73) Lymphocytes (%) (Auto) 8 % (24-48) 7 % (24-48) Monocytes (%) (Auto) 9 % (0-9) 10 % (0-9) Eosinophils (%) (Auto) 1 % (0-3) 0 % (0-3) Basophils (%) (Auto) 1 % (0-3) 1 % (0-3) Neutrophils # (Auto) 9.9 x10^3/uL (1.8-7.7) 10.1 x10^3/uL (1.8-7.7) Lymphocytes # (Auto) 1.0 x10^3/uL (1.0-4.8) 0.9 x10^3/uL (1.0-4.8) Monocytes # (Auto) 1.1 x10^3/uL (0.0-1.1) 1.2 x10^3/uL (0.0-1.1) Eosinophils # (Auto) 0.1 x10^3/uL (0.0-0.7) 0.0 x10^3/uL (0.0-0.7) Basophils # (Auto) 0.1 x10^3/uL (0.0-0.2) 0.1 x10^3/uL (0.0-0.2) Sodium Level 135 mmol/L (136-145) 135 mmol/L (136-145) Potassium Level 4.7 mmol/L (3.5-5.1) 4.4 mmol/L (3.5-5.1) Chloride Level 98 mmol/L (98-107) 97 mmol/L (98-107) Carbon Dioxide Level 30 mmol/L (21-32) 29 mmol/L (21-32) Anion Gap 7 (6-14) 9 (6-14) Blood Urea Nitrogen 23 mg/dL (8-26) 21 mg/dL (8-26) Creatinine 1.3 mg/dL (0.7-1.3) 1.3 mg/dL (0.7-1.3) Estimated GFR (Cockcroft-Gault) 53.4 53.4 BUN/Creatinine Ratio 18 (6-20) 16 (6-20) Glucose Level 166 mg/dL (70-99) 191 mg/dL (70-99) Calcium Level 9.5 mg/dL (8.5-10.1) 9.6 mg/dL (8.5-10.1) Total Bilirubin 0.7 mg/dL (0.2-1.0) 1.0 mg/dL (0.2-1.0) Aspartate Amino Transf (AST/SGOT) 13 U/L (15-37) 15 U/L (15-37) Alanine Aminotransferase (ALT/SGPT) 26 U/L (16-63) 26 U/L (16-63) Alkaline Phosphatase 58 U/L (46-116) 65 U/L (46-116) Troponin I Quantitative < 0.017 ng/mL (0.000-0.055) KY-Jqs-O-Type Natriuretic Peptide 119 pg/mL (0-449) Total Protein 7.9 g/dL (6.4-8.2) 8.5 g/dL (6.4-8.2) Albumin 4.0 g/dL (3.4-5.0) 4.1 g/dL (3.4-5.0) Albumin/Globulin Ratio 1.0 (1.0-1.7) 0.9 (1.0-1.7) Urine Collection Type Void Urine Color Yellow Urine Clarity Clear Urine pH 6.0 Urine Specific [place] 1.015 Urine Protein 30 mg/dL (NEG-TRACE) Urine Glucose (UA) Negative mg/dL (NEG) Urine Ketones (Stick) Negative mg/dL (NEG) Urine Blood Large (NEG) Urine Nitrite Negative (NEG) Urine Bilirubin Negative (NEG) Urine Urobilinogen Dipstick 1.0 mg/dL (0.2 mg/dL) Urine Leukocyte Esterase Moderate (NEG) Urine RBC >40 /HPF (0-2) Urine WBC 11-20 /HPF (0-4) Urine Squamous Epithelial Cells Occ /LPF Urine Bacteria Many /HPF (0-FEW) Images Images Examination: PORTABLE CHEST 1V History: Cough and shortness of breath Comparison/Correlation: 11/16/2008 chest x-ray exam Findings: Portable semiupright frontal view of the chest was obtained. Heart size enlarged. No pneumothorax. Evaluation of the lung bases is limited due to underpenetrated technique. Right costophrenic angle was not fully included on this exam limiting assessment. No significant pleural effusion. Retrocardiac linear atelectasis or infiltrate appears to be present. Retrocardiac opacity which raises question of hiatal hernia noted. Impression: Bibasal retrocardiac linear atelectasis or possibly infiltrate. Electronically signed by: Raghavendra Barry MD (01/10/2019 8:21 PM) [facility] SEX: M EXAM STATUS: REG ER ORD. PHYSICIAN: MELONY ALEXANDER MD REASON: AMS, DIFFICULTY HOLDING STILL PROCEDURE: CT HEAD WO CONTRAST Examination: CT HEAD WO CONTRAST History: Altered mental status Comparison/Correlation: 11/16/2008 CT head without contrast Findings: Axial images of the head were obtained without contrast. Mild atrophy is present. No intracranial hemorrhage, midline shift, or mass effect although evaluation may be limited to the vertex due to motion. The right middle cerebral artery is somewhat dense as compared to the left middle cerebral artery but this is similar for correlation with the previous exam. Small left basal ganglia lacunar infarct is suggested but stable. Bony structures are unremarkable. Cavernous carotid calcification noted. Impression: No acute process. PQRS Compliance Statement: One or more of the following individualized dose reduction techniques were utilized for this examination: 1. Automated exposure control 2. Adjustment of the mA and/or kV according to patient size 3. Use of iterative reconstruction technique Electronically signed by: Raghavendra Barry MD (01/10/2019 7:57 PM) [facility] DICTATED and SIGNED BY: RAGHAVENDRA BARRY MD DATE: 01/10/191956 VTE Prophylaxis Ordered VTE Prophylaxis Devices: No VTE Pharmacological Prophylaxi: Yes Assessment/Plan Assessment/Plan IMPRESSION ACUTE ALTERED MENTAL STATUS Acute metabolic encephalopathy UTI sepsis Bibasal retrocardiac linear atelectasis or possibly infiltrate. ASPIRATION RISK SEPSIS PLAN ADMIT IV ANTIBIOTICS, ROCEPHIN, DOXY BLOOD AND URINE CULTURES ID CONSULT PULM CONSULT ST EVAL, SWALLOW neurology consult dvt prophylaxis 77 min pt exam, chart review, > 50% of time spent with exam, chart review, pt care coordination RICHARDSON GONZALEZ MD Jan 11, 2019 10:01
[2019-01-11 11:00] VITALS: BP 137/62
[2019-01-11] MEDS ORDERED: cefTRIAXone IV Push 1 GM VIAL. IVP SCH (12:00)
[2019-01-11] MEDS ORDERED: MAG HYDROX/ALUMINUM HYD/SIMETH 30 ML ORAL.SUSP PO PRN (14:15)
[2019-01-11] MEDS ORDERED: cloNIDine HCL 0.1 MG TABLET PO PRN (14:15)
[2019-01-11] MEDS ORDERED: 0.9 % SODIUM CHLORIDE 10 ML DISP.SYRIN. IV PRN (14:15)
[2019-01-11] MEDS ORDERED: guaiFENesin ORAL 200 MG/10 ML LIQUID. PO PRN (14:15)
[2019-01-11] MEDS ORDERED: DOCUSATE SODIUM 100 MG CAPSULE. PO PRN (14:15)
[2019-01-11] MEDS ORDERED: LORazepam 0.5 MG TABLET PO PRN (14:15)
--- NOTE | 2019-01-11 14:30 | NUR ---
SW following pt for dc planning. Chart reviewed. Pt lives at home with spouse. PT/OT ordered but SWer has observed pt standing independently outside of his room. No needs identified at this time. Will be available as needed.
[2019-01-11 15:00] VITALS: BP 148/72
[2019-01-11] MEDS: DOXYCYCLINE HYCLATE 100 MG in IV DEXTROSE 5% 100ML 100 ML IV SCH ×2 (15:48→22:15)
--- NOTE | 2019-01-11 16:23 | NUR ---
ABELARDO following pt. Per RN, family would like pt to transfer to due to insurance. ABELARDO phoned and made a request. Records faxed to . Acceptance pending. ABELARDO left Physician and RN number to finding fastener.
--- NOTE | 2019-01-11 16:58 | NUR ---
Notified Dr. Ayoub of patient's plan to transfer to due to insurance issues at 1620, SW notified as well.
[2019-01-11 16:59] LABS: BASE EXCESS ABG 0 mmol/L (-3-3); HCO3 ABG 26 mmol/L (21-28); PCO2 ABG 45 mmHg (35-46); PO2 ABG 70 mmHg (65-108); SAT O2 ABG 94 % (92-99)
[2019-01-11 19:30] VITALS: BP 159/71
[2019-01-11] MEDS ORDERED: DEXTROSE 50% 25 GM / 50ML DISP.SYRIN. IV PRN (21:30)
[2019-01-11] MEDS: INSULIN LISPRO 300 UNITS/3 ML VIAL. SQ SCH (22:20)
[2019-01-11 23:40] VITALS: BP 144/57
--- NOTE | 2019-01-12 00:24 | CONS ---
DATE OF CONSULTATION: 01/11/2019 ATTENDING PHYSICIAN: Dr. Ayoub. CONSULTING PHYSICIAN: Rangel Ba MD REASON FOR CONSULTATION: The patient is seen in pulmonary consultation at the request of Dr. Ayoub for abnormal x-ray. HISTORY OF PRESENT ILLNESS: The patient is a 78-year-old who saw Dr. Tinoco, his primary care doctor yesterday. He was prescribed some antibiotics and inhalers. Today, his family found him to be somewhat confused. He was not himself. They called Dr. Tinoco who instructed the patient to come to the Emergency Room. He was admitted. I was asked to see him in consultation as x-ray revealed cardiomegaly with retrocardiac infiltrate. The patient used to smoke and quit in 1989. He does have underlying COPD. He does wear oxygen p.r.n. He has some inhalers at home. He could not tell me the name. PAST MEDICAL HISTORY: Remarkable for COPD; tobacco dependence, in remission; previous CVA; type 2 diabetes; hypertension; obesity, and emphysema. PAST SURGICAL HISTORY: He has had past surgical history of right ankle surgery repair. FAMILY HISTORY: Hypertension. SOCIAL HISTORY: He quit tobacco in 1989. CURRENT MEDICATION LIST: Reviewed. ALLERGIES: No known drug allergies. HOME MEDICATION LIST: Reviewed. REVIEW OF SYSTEMS: As indicated above, otherwise, a 10-point system was reviewed and negative. PHYSICAL EXAMINATION: GENERAL: Obese individual. VITAL SIGNS: On 3 liters of oxygen supplementation, O2 saturation was greater than 92% and T-max was 102.0. HEENT: Eyes, the sclerae were nonicteric. NECK: Jugular venous distention was not elevated. No lymphadenopathy. CHEST: Full expansion. LUNGS: Coarse breath sounds, no wheezes. CARDIOVASCULAR: Regular rate and rhythm with S1, S2, no S3. ABDOMEN: Soft and distended. EXTREMITIES: No clubbing or cyanosis, no pitting edema. NEUROLOGIC: The patient was awake, alert and following commands. A detailed neuro exam was not performed. LABORATORY DATA: Reviewed. White count was 12,000 and hemoglobin and hematocrit were elevated. Electrolytes were noted. IMAGING: Chest x-ray as indicated above. IMPRESSION: 1. Abnormal x-ray with retrocardiac infiltrate compatible with pneumonia, suspect Gram negative. 2. Urinary tract infection. 3. Fever secondary to above. 4. Acute exacerbation of chronic obstructive pulmonary disease. 5. Obesity. 6. Metabolic toxic encephalopathy, present upon admission. 7. Leukocytosis. 8. Polycythemia, suspect secondary to chronic oxygen deficit. PLAN: 1. Recommend to continue current IV antibiotics. 2. We will obtain arterial blood gas to rule out hypercapnia. 3. Nebulized treatments. 4. Possible outpatient polysomnogram. I do appreciate the privilege in sharing in the patient's care. RANGEL BA MD DR: SHAYLA/yolanda JOB#: [id number] / [id number]
[2019-01-12 03:11] VITALS: BP 149/57
[2019-01-12 07:00] VITALS: BP 157/84
[2019-01-12] MEDS: IPRATRPIUM/ALBUTEROL 0.5/2.5MG 3 ML NEBU. NEB SCH (07:23)
[2019-01-12] MEDS: ACETAMINOPHEN 325 MG TABLET. PO PRN ×2 (08:30→14:48)
[2019-01-12] MEDS: DOXYCYCLINE HYCLATE 100 MG in IV DEXTROSE 5% 100ML 100 ML IV SCH (08:31)
[2019-01-12] MEDS: INSULIN LISPRO 300 UNITS/3 ML VIAL. SQ SCH ×3 (08:44→16:30)
--- NOTE | 2019-01-12 08:48 | PDOC ---
PROGRESS NOTES History of Present Illness History of Present Illness VTE Prophylaxis Ordered VTE Prophylaxis Devices: No VTE Pharmacological Prophylaxi: Yes Assessment/Plan Assessment/Plan IMPRESSION ACUTE ALTERED MENTAL STATUS Acute metabolic encephalopathy UTI sepsis Bibasal retrocardiac linear atelectasis or possibly infiltrate. acute hypoxic resp failure ASPIRATION RISK SEPSIS 01/12 soa slow to resolve , still prolonged exp phase, c/o dysuria PLAN ADMIT IV ANTIBIOTICS, ROCEPHIN, DOXY BLOOD AND URINE CULTURES ID CONSULT PULM CONSULT ST EVAL, SWALLOW neurology consult dvt prophylaxis o2 support Vitals Vitals Vital Signs Date Time Temp Pulse Resp B/P (MAP) Pulse Ox O2 Delivery O2 Flow Rate FiO2 01/12/19 07:00 98.4 77 20 157/84 (108) 96 Nasal Cannula 2.0 98.4 Physical Exam General: Alert, Oriented X3, Cooperative, No acute distress Heart: Regular rate, Normal S1, Normal S2 Lungs: Other (diminished, prolonged exp phase mild wheeze) Abdomen: Normal bowel sounds, Soft Extremities: No cyanosis Skin: No significant lesion Labs LABS Laboratory Tests Test 01/11/19 11:55 01/11/19 16:34 01/11/19 16:45 01/11/19 21:09 Glucose (Fingerstick) 236 mg/dL (70-99) 289 mg/dL (70-99) 254 mg/dL (70-99) O2 Saturation 94 % (92-99) Arterial Blood pH 7.38 (7.35-7.45) Arterial Blood pCO2 at Patient Temp 45 mmHg (35-46) Arterial Blood pO2 at Patient Temp 70 mmHg (65-108) Arterial Blood HCO3 26 mmol/L (21-28) Arterial Blood Base Excess 0 mmol/L (-3-3) FiO2 2 lpm nc Test 01/12/19 07:23 Glucose (Fingerstick) 212 mg/dL (70-99) Assessment and Plan Assessmemt and Plan Problems Medical Problems: (1) AMS (altered mental status) Status: Acute (2) Chronic respiratory failure Status: Acute (3) UTI (urinary tract infection) Status: Acute Comment Review of Relevant I have reviewed the following items omar (where applicable) has been applied. Labs Laboratory Tests Test 01/10/19 19:07 01/10/19 19:10 01/10/19 19:11 01/11/19 04:10 Lactic Acid Level 1.1 mmol/L (0.4-2.0) White Blood Count 12.1 x10^3/uL (4.0-11.0) 12.2 x10^3/uL (4.0-11.0) Red Blood Count 5.74 x10^6/uL (4.30-5.70) 5.92 x10^6/uL (4.30-5.70) Hemoglobin 17.8 g/dL (13.0-17.5) 18.6 g/dL (13.0-17.5) Hematocrit 53.3 % (39.0-53.0) 55.6 % (39.0-53.0) Mean Corpuscular Volume 93 fL (79-100) 94 fL (79-100) Mean Corpuscular Hemoglobin 31 pg (25-35) 32 pg (25-35) Mean Corpuscular Hemoglobin Concent 33 g/dL (31-37) 34 g/dL (31-37) Red Cell Distribution Width 14.0 % (11.5-14.5) 14.1 % (11.5-14.5) Platelet Count 176 x10^3/uL (140-400) 147 x10^3/uL (140-400) Neutrophils (%) (Auto) 82 % (31-73) 82 % (31-73) Lymphocytes (%) (Auto) 8 % (24-48) 7 % (24-48) Monocytes (%) (Auto) 9 % (0-9) 10 % (0-9) Eosinophils (%) (Auto) 1 % (0-3) 0 % (0-3) Basophils (%) (Auto) 1 % (0-3) 1 % (0-3) Neutrophils # (Auto) 9.9 x10^3/uL (1.8-7.7) 10.1 x10^3/uL (1.8-7.7) Lymphocytes # (Auto) 1.0 x10^3/uL (1.0-4.8) 0.9 x10^3/uL (1.0-4.8) Monocytes # (Auto) 1.1 x10^3/uL (0.0-1.1) 1.2 x10^3/uL (0.0-1.1) Eosinophils # (Auto) 0.1 x10^3/uL (0.0-0.7) 0.0 x10^3/uL (0.0-0.7) Basophils # (Auto) 0.1 x10^3/uL (0.0-0.2) 0.1 x10^3/uL (0.0-0.2) Sodium Level 135 mmol/L (136-145) 135 mmol/L (136-145) Potassium Level 4.7 mmol/L (3.5-5.1) 4.4 mmol/L (3.5-5.1) Chloride Level 98 mmol/L (98-107) 97 mmol/L (98-107) Carbon Dioxide Level 30 mmol/L (21-32) 29 mmol/L (21-32) Anion Gap 7 (6-14) 9 (6-14) Blood Urea Nitrogen 23 mg/dL (8-26) 21 mg/dL (8-26) Creatinine 1.3 mg/dL (0.7-1.3) 1.3 mg/dL (0.7-1.3) Estimated GFR (Cockcroft-Gault) 53.4 53.4 BUN/Creatinine Ratio 18 (6-20) 16 (6-20) Glucose Level 166 mg/dL (70-99) 191 mg/dL (70-99) Calcium Level 9.5 mg/dL (8.5-10.1) 9.6 mg/dL (8.5-10.1) Total Bilirubin 0.7 mg/dL (0.2-1.0) 1.0 mg/dL (0.2-1.0) Aspartate Amino Transf (AST/SGOT) 13 U/L (15-37) 15 U/L (15-37) Alanine Aminotransferase (ALT/SGPT) 26 U/L (16-63) 26 U/L (16-63) Alkaline Phosphatase 58 U/L (46-116) 65 U/L (46-116) Troponin I Quantitative < 0.017 ng/mL (0.000-0.055) ON-Mff-G-Type Natriuretic Peptide 119 pg/mL (0-449) Total Protein 7.9 g/dL (6.4-8.2) 8.5 g/dL (6.4-8.2) Albumin 4.0 g/dL (3.4-5.0) 4.1 g/dL (3.4-5.0) Albumin/Globulin Ratio 1.0 (1.0-1.7) 0.9 (1.0-1.7) Urine Collection Type Void Urine Color Yellow Urine Clarity Clear Urine pH 6.0 Urine Specific [place] 1.015 Urine Protein 30 mg/dL (NEG-TRACE) Urine Glucose (UA) Negative mg/dL (NEG) Urine Ketones (Stick) Negative mg/dL (NEG) Urine Blood Large (NEG) Urine Nitrite Negative (NEG) Urine Bilirubin Negative (NEG) Urine Urobilinogen Dipstick 1.0 mg/dL (0.2 mg/dL) Urine Leukocyte Esterase Moderate (NEG) Urine RBC >40 /HPF (0-2) Urine WBC 11-20 /HPF (0-4) Urine Squamous Epithelial Cells Occ /LPF Urine Bacteria Many /HPF (0-FEW) Test 01/11/19 11:55 01/11/19 16:34 01/11/19 16:45 01/11/19 21:09 Glucose (Fingerstick) 236 mg/dL (70-99) 289 mg/dL (70-99) 254 mg/dL (70-99) O2 Saturation 94 % (92-99) Arterial Blood pH 7.38 (7.35-7.45) Arterial Blood pCO2 at Patient Temp 45 mmHg (35-46) Arterial Blood pO2 at Patient Temp 70 mmHg (65-108) Arterial Blood HCO3 26 mmol/L (21-28) Arterial Blood Base Excess 0 mmol/L (-3-3) FiO2 2 lpm nc Test 01/12/19 07:23 Glucose (Fingerstick) 212 mg/dL (70-99) Laboratory Tests Test 01/11/19 11:55 01/11/19 16:34 01/11/19 16:45 01/11/19 21:09 Glucose (Fingerstick) 236 mg/dL (70-99) 289 mg/dL (70-99) 254 mg/dL (70-99) O2 Saturation 94 % (92-99) Arterial Blood pH 7.38 (7.35-7.45) Arterial Blood pCO2 at Patient Temp 45 mmHg (35-46) Arterial Blood pO2 at Patient Temp 70 mmHg (65-108) Arterial Blood HCO3 26 mmol/L (21-28) Arterial Blood Base Excess 0 mmol/L (-3-3) FiO2 2 lpm nc Test 01/12/19 07:23 Glucose (Fingerstick) 212 mg/dL (70-99) Microbiology 01/10/19 Blood Culture - Preliminary, Resulted NO GROWTH AFTER 1 DAY Medications Current Medications Albuterol/ Ipratropium (Duoneb) 3 ml 1X ONCE NEB Last administered on 01/10/19 18:49; Start 01/10/19 at 18:45; Stop 01/10/19 at 18:46; Status DC Ceftriaxone Sodium (Rocephin) 1 gm 1X ONCE IVP Last administered on 01/10/19at 20:49; Start 01/10/19 at 20:30; Stop 01/10/19 at 20:35; Status DC Ondansetron HCl (Zofran) 4 mg PRN Q8HRS PRN IV NAUSEA/VOMITING; Start 01/10/19 at 20:45; Stop 01/11/19 at 20:44; Status DC Acetaminophen (Tylenol) 650 mg PRN Q4HRS PRN PO FEVER Last administered on 01/11/19at 14:02; Start 01/10/19 at 20:45; Stop 01/11/19 at 16:43; Status DC Albuterol/ Ipratropium (Duoneb) 3 ml RTQID NEB Last administered on 01/11/19at 20:25; Start 01/11/19 at 08:00; Stop 01/12/19 at 07:59; Status DC Acetaminophen (Tylenol) 1,000 mg 1X ONCE PO Last administered on 01/10/19at 20:51; Start 01/10/19 at 20:45; Stop 01/10/19 at 20:46; Status DC Influenza Virus Vaccine Quadrival (Afluria Quad 2019-20 (3yr Up) Syringe) 0.5 ml ONCE ONCE VAX IM Last administered on 01/11/19at 12:50; Start 01/11/19 at 09:00; Stop 01/11/19 at 09:01; Status DC Ceftriaxone Sodium (Rocephin) 1 gm Q24H IVP Last administered on 01/11/19at 12:39; Start 01/11/19 at 12:00 Doxycycline Hyclate 100 mg/ Dextrose 100 ml @ 50 mls/hr Q12HR IV Last administered on 01/12/19at 08:31; Start 01/11/19 at 15:00 Sodium Chloride (Normal Saline Flush) 3 ml QSHIFT PRN IV AFTER MEDS AND BLOOD DRAWS; Start 01/11/19 at 14:15 Acetaminophen (Tylenol) 650 mg PRN Q4HRS PRN PO TEMP OVER 100.4F OR MILD PAIN Last administered on 01/12/19at 08:30; Start 01/11/19 at 14:15 Al Hydroxide/Mg Hydroxide (Mylanta Plus Xs) 30 ml PRN DAILY PRN PO HEARTBURN / GAS; Start 01/11/19 at 14:15 Clonidine HCl (Catapres) 0.1 mg PRN Q6HRS PRN PO SBP>160 OR DBP>90; Start 01/11/19 at 14:15 Docusate Sodium (Colace) 100 mg PRN BID PRN PO CONSTIPATION; Start 01/11/19 at 14:15 Guaifenesin (Robitussin) 200 mg PRN Q4HRS PRN PO COUGH; Start 01/11/19 at 14:15 Lorazepam (Ativan) 0.5 mg PRN Q4HRS PRN PO ANXIETY / AGITATION; Start 01/11/19 at 14:15; Stop 01/11/19 at 16:38; Status DC Insulin Human Lispro (HumaLOG) 0-5 UNITS TIDACHC SQ Last administered on 01/12/19at 08:44; Start 01/11/19 at 22:00 Dextrose (Dextrose 50%-Water Syringe) 12.5 gm PRN Q15MIN PRN IV SEE COMMENTS; Start 01/11/19 at 21:30 Active Scripts Active Cephalexin 500 Mg Tablet 1 Tab PO BID Prednisone 20 Mg Tablet 40 Mg PO DAILY 7 Days Benadryl (Diphenhydramine Hcl) 25 Mg Capsule 1 Cap PO QHS Cyclobenzaprine Hcl 5 Mg Tablet 1 Tab PO TID PRN Vitals/I & O Vital Sign - Last 24 Hours 01/11/19 01/11/19 01/11/19 01/11/19 11:00 11:57 15:00 15:56 Temp 98.2 98.1 98.2 98.1 Pulse 67 70 Resp 18 18 B/P (MAP) 137/62 (87) 148/72 (97) Pulse Ox 95 95 95 O2 Delivery Nasal Cannula Nasal Cannula Nasal Cannula Nasal Cannula O2 Flow Rate 3.0 3.0 3.0 3.0 01/11/19 01/11/19 01/11/19 01/11/19 19:30 20:00 20:27 23:40 Temp 97.8 98.4 97.8 98.4 Pulse 71 64 Resp 18 18 B/P (MAP) 159/71 (100) 144/57 (86) Pulse Ox 93 92 94 O2 Delivery Nasal Cannula Room Air Room Air Nasal Cannula O2 Flow Rate 2.0 3.0 2.0 2.0 01/12/19 01/12/19 03:11 07:00 Temp 98.1 98.4 98.1 98.4 Pulse 68 77 Resp 20 20 B/P (MAP) 149/57 (87) 157/84 (108) Pulse Ox 94 96 O2 Delivery Nasal Cannula Nasal Cannula O2 Flow Rate 2.0 2.0 Intake and Output 01/11/19 01/11/19 01/12/19 15:00 23:00 07:00 Intake Total 450 ml 250 ml Output Total 150 ml 100 ml Balance 300 ml 150 ml RICHARDSON GONZALEZ MD Jan 12, 2019 08:48
[2019-01-12 09:25] LABS: ALBUMIN 3.5 g/dL (3.4-5.0); ALBUMIN/GLOBULIN RATIO 0.8 (1.0-1.7); CALCIUM 9.3 mg/dL (8.5-10.1); CREATININE 1.1 mg/dL (0.7-1.3); GFR 64.7; POTASSIUM 4.6 mmol/L (3.5-5.1); TOTAL BILIRUBIN 0.8 mg/dL (0.2-1.0); TOTAL PROTEIN 8.1 g/dL (6.4-8.2)
[2019-01-12 09:26] LABS: BASO # 0.1 x10^3/uL (0.0-0.2); BASO % 0 % (0-3); EOS # 0.2 x10^3/uL (0.0-0.7); EOS % 1 % (0-3); HEMATOCRIT 53.9 % (39.0-53.0); HEMOGLOBIN 17.7 g/dL (13.0-17.5); LYMPH # 0.8 x10^3/uL (1.0-4.8); LYMPH % 6 % (24-48); MEAN CORPUSCULAR HEMOGLOBIN 31 pg (25-35); MEAN CORPUSCULAR HGB CONC 33 g/dL (31-37); MEAN CORPUSCULAR VOLUME 95 fL (79-100); MONO # 1.2 x10^3/uL (0.0-1.1); MONO % 9 % (0-9); NEUT # 10.8 x10^3/uL (1.8-7.7); NEUT % 83 % (31-73); PLATELET COUNT 170 x10^3/uL (140-400); RED CELL DISTRIBUTION WIDTH 14.5 % (11.5-14.5)
--- NOTE | 2019-01-12 09:38 | PDOC ---
PULMONARY PROGRESS NOTES Subjective PT. is resting in bed on N/C, he reports non-productive cough and some SOB on exertion. He is also complaining on pain with urination Vitals Vital Signs Date Time Temp Pulse Resp B/P (MAP) Pulse Ox O2 Delivery O2 Flow Rate FiO2 01/12/19 08:00 Nasal Cannula 2.0 01/12/19 07:00 98.4 77 20 157/84 (108) 96 98.4 ROS: No Nausea, No Chest Pain, No Increase Cough General: Alert, Oriented X4 Lungs: Other (diminshed in abses ) Cardiovascular: S1, S2 Neuro Exam: Alert, Oriented Extremities: No Edema Skin: Warm, Dry Labs Laboratory Tests Test 01/10/19 19:07 01/10/19 19:10 01/10/19 19:11 01/11/19 04:10 Lactic Acid Level 1.1 mmol/L (0.4-2.0) White Blood Count 12.1 x10^3/uL (4.0-11.0) 12.2 x10^3/uL (4.0-11.0) Red Blood Count 5.74 x10^6/uL (4.30-5.70) 5.92 x10^6/uL (4.30-5.70) Hemoglobin 17.8 g/dL (13.0-17.5) 18.6 g/dL (13.0-17.5) Hematocrit 53.3 % (39.0-53.0) 55.6 % (39.0-53.0) Mean Corpuscular Volume 93 fL (79-100) 94 fL (79-100) Mean Corpuscular Hemoglobin 31 pg (25-35) 32 pg (25-35) Mean Corpuscular Hemoglobin Concent 33 g/dL (31-37) 34 g/dL (31-37) Red Cell Distribution Width 14.0 % (11.5-14.5) 14.1 % (11.5-14.5) Platelet Count 176 x10^3/uL (140-400) 147 x10^3/uL (140-400) Neutrophils (%) (Auto) 82 % (31-73) 82 % (31-73) Lymphocytes (%) (Auto) 8 % (24-48) 7 % (24-48) Monocytes (%) (Auto) 9 % (0-9) 10 % (0-9) Eosinophils (%) (Auto) 1 % (0-3) 0 % (0-3) Basophils (%) (Auto) 1 % (0-3) 1 % (0-3) Neutrophils # (Auto) 9.9 x10^3/uL (1.8-7.7) 10.1 x10^3/uL (1.8-7.7) Lymphocytes # (Auto) 1.0 x10^3/uL (1.0-4.8) 0.9 x10^3/uL (1.0-4.8) Monocytes # (Auto) 1.1 x10^3/uL (0.0-1.1) 1.2 x10^3/uL (0.0-1.1) Eosinophils # (Auto) 0.1 x10^3/uL (0.0-0.7) 0.0 x10^3/uL (0.0-0.7) Basophils # (Auto) 0.1 x10^3/uL (0.0-0.2) 0.1 x10^3/uL (0.0-0.2) Sodium Level 135 mmol/L (136-145) 135 mmol/L (136-145) Potassium Level 4.7 mmol/L (3.5-5.1) 4.4 mmol/L (3.5-5.1) Chloride Level 98 mmol/L (98-107) 97 mmol/L (98-107) Carbon Dioxide Level 30 mmol/L (21-32) 29 mmol/L (21-32) Anion Gap 7 (6-14) 9 (6-14) Blood Urea Nitrogen 23 mg/dL (8-26) 21 mg/dL (8-26) Creatinine 1.3 mg/dL (0.7-1.3) 1.3 mg/dL (0.7-1.3) Estimated GFR (Cockcroft-Gault) 53.4 53.4 BUN/Creatinine Ratio 18 (6-20) 16 (6-20) Glucose Level 166 mg/dL (70-99) 191 mg/dL (70-99) Calcium Level 9.5 mg/dL (8.5-10.1) 9.6 mg/dL (8.5-10.1) Total Bilirubin 0.7 mg/dL (0.2-1.0) 1.0 mg/dL (0.2-1.0) Aspartate Amino Transf (AST/SGOT) 13 U/L (15-37) 15 U/L (15-37) Alanine Aminotransferase (ALT/SGPT) 26 U/L (16-63) 26 U/L (16-63) Alkaline Phosphatase 58 U/L (46-116) 65 U/L (46-116) Troponin I Quantitative < 0.017 ng/mL (0.000-0.055) XK-Qkl-X-Type Natriuretic Peptide 119 pg/mL (0-449) Total Protein 7.9 g/dL (6.4-8.2) 8.5 g/dL (6.4-8.2) Albumin 4.0 g/dL (3.4-5.0) 4.1 g/dL (3.4-5.0) Albumin/Globulin Ratio 1.0 (1.0-1.7) 0.9 (1.0-1.7) Urine Collection Type Void Urine Color Yellow Urine Clarity Clear Urine pH 6.0 Urine Specific [place] 1.015 Urine Protein 30 mg/dL (NEG-TRACE) Urine Glucose (UA) Negative mg/dL (NEG) Urine Ketones (Stick) Negative mg/dL (NEG) Urine Blood Large (NEG) Urine Nitrite Negative (NEG) Urine Bilirubin Negative (NEG) Urine Urobilinogen Dipstick 1.0 mg/dL (0.2 mg/dL) Urine Leukocyte Esterase Moderate (NEG) Urine RBC >40 /HPF (0-2) Urine WBC 11-20 /HPF (0-4) Urine Squamous Epithelial Cells Occ /LPF Urine Bacteria Many /HPF (0-FEW) Test 01/11/19 11:55 01/11/19 16:34 01/11/19 16:45 01/11/19 21:09 Glucose (Fingerstick) 236 mg/dL (70-99) 289 mg/dL (70-99) 254 mg/dL (70-99) O2 Saturation 94 % (92-99) Arterial Blood pH 7.38 (7.35-7.45) Arterial Blood pCO2 at Patient Temp 45 mmHg (35-46) Arterial Blood pO2 at Patient Temp 70 mmHg (65-108) Arterial Blood HCO3 26 mmol/L (21-28) Arterial Blood Base Excess 0 mmol/L (-3-3) FiO2 2 lpm nc Test 01/12/19 07:10 01/12/19 07:23 White Blood Count 13.0 x10^3/uL (4.0-11.0) Red Blood Count 5.70 x10^6/uL (4.30-5.70) Hemoglobin 17.7 g/dL (13.0-17.5) Hematocrit 53.9 % (39.0-53.0) Mean Corpuscular Volume 95 fL (79-100) Mean Corpuscular Hemoglobin 31 pg (25-35) Mean Corpuscular Hemoglobin Concent 33 g/dL (31-37) Red Cell Distribution Width 14.5 % (11.5-14.5) Platelet Count 170 x10^3/uL (140-400) Neutrophils (%) (Auto) 83 % (31-73) Lymphocytes (%) (Auto) 6 % (24-48) Monocytes (%) (Auto) 9 % (0-9) Eosinophils (%) (Auto) 1 % (0-3) Basophils (%) (Auto) 0 % (0-3) Neutrophils # (Auto) 10.8 x10^3/uL (1.8-7.7) Lymphocytes # (Auto) 0.8 x10^3/uL (1.0-4.8) Monocytes # (Auto) 1.2 x10^3/uL (0.0-1.1) Eosinophils # (Auto) 0.2 x10^3/uL (0.0-0.7) Basophils # (Auto) 0.1 x10^3/uL (0.0-0.2) Sodium Level 131 mmol/L (136-145) Potassium Level 4.6 mmol/L (3.5-5.1) Chloride Level 96 mmol/L (98-107) Carbon Dioxide Level 25 mmol/L (21-32) Anion Gap 10 (6-14) Blood Urea Nitrogen 18 mg/dL (8-26) Creatinine 1.1 mg/dL (0.7-1.3) Estimated GFR (Cockcroft-Gault) 64.7 BUN/Creatinine Ratio 16 (6-20) Glucose Level 221 mg/dL (70-99) Calcium Level 9.3 mg/dL (8.5-10.1) Total Bilirubin 0.8 mg/dL (0.2-1.0) Aspartate Amino Transf (AST/SGOT) 14 U/L (15-37) Alanine Aminotransferase (ALT/SGPT) 18 U/L (16-63) Alkaline Phosphatase 67 U/L (46-116) Total Protein 8.1 g/dL (6.4-8.2) Albumin 3.5 g/dL (3.4-5.0) Albumin/Globulin Ratio 0.8 (1.0-1.7) Glucose (Fingerstick) 212 mg/dL (70-99) Laboratory Tests Test 01/11/19 11:55 01/11/19 16:34 01/11/19 16:45 01/11/19 21:09 Glucose (Fingerstick) 236 mg/dL (70-99) 289 mg/dL (70-99) 254 mg/dL (70-99) O2 Saturation 94 % (92-99) Arterial Blood pH 7.38 (7.35-7.45) Arterial Blood pCO2 at Patient Temp 45 mmHg (35-46) Arterial Blood pO2 at Patient Temp 70 mmHg (65-108) Arterial Blood HCO3 26 mmol/L (21-28) Arterial Blood Base Excess 0 mmol/L (-3-3) FiO2 2 lpm nc Test 01/12/19 07:10 01/12/19 07:23 White Blood Count 13.0 x10^3/uL (4.0-11.0) Red Blood Count 5.70 x10^6/uL (4.30-5.70) Hemoglobin 17.7 g/dL (13.0-17.5) Hematocrit 53.9 % (39.0-53.0) Mean Corpuscular Volume 95 fL (79-100) Mean Corpuscular Hemoglobin 31 pg (25-35) Mean Corpuscular Hemoglobin Concent 33 g/dL (31-37) Red Cell Distribution Width 14.5 % (11.5-14.5) Platelet Count 170 x10^3/uL (140-400) Neutrophils (%) (Auto) 83 % (31-73) Lymphocytes (%) (Auto) 6 % (24-48) Monocytes (%) (Auto) 9 % (0-9) Eosinophils (%) (Auto) 1 % (0-3) Basophils (%) (Auto) 0 % (0-3) Neutrophils # (Auto) 10.8 x10^3/uL (1.8-7.7) Lymphocytes # (Auto) 0.8 x10^3/uL (1.0-4.8) Monocytes # (Auto) 1.2 x10^3/uL (0.0-1.1) Eosinophils # (Auto) 0.2 x10^3/uL (0.0-0.7) Basophils # (Auto) 0.1 x10^3/uL (0.0-0.2) Sodium Level 131 mmol/L (136-145) Potassium Level 4.6 mmol/L (3.5-5.1) Chloride Level 96 mmol/L (98-107) Carbon Dioxide Level 25 mmol/L (21-32) Anion Gap 10 (6-14) Blood Urea Nitrogen 18 mg/dL (8-26) Creatinine 1.1 mg/dL (0.7-1.3) Estimated GFR (Cockcroft-Gault) 64.7 BUN/Creatinine Ratio 16 (6-20) Glucose Level 221 mg/dL (70-99) Calcium Level 9.3 mg/dL (8.5-10.1) Total Bilirubin 0.8 mg/dL (0.2-1.0) Aspartate Amino Transf (AST/SGOT) 14 U/L (15-37) Alanine Aminotransferase (ALT/SGPT) 18 U/L (16-63) Alkaline Phosphatase 67 U/L (46-116) Total Protein 8.1 g/dL (6.4-8.2) Albumin 3.5 g/dL (3.4-5.0) Albumin/Globulin Ratio 0.8 (1.0-1.7) Glucose (Fingerstick) 212 mg/dL (70-99) Medications Active Scripts Medications Dose Route/Sig Max Daily Dose Days Date Category Cephalexin 500 Mg Tablet 1 Tab PO BID 12/01/16 Rx Prednisone 20 Mg Tablet 40 Mg PO DAILY 7 12/01/16 Rx Benadryl (Diphenhydramine Hcl) 25 Mg Capsule 1 Cap PO QHS 12/01/16 Rx Cyclobenzaprine Hcl 5 Mg Tablet 1 Tab PO TID PRN 10/19/16 Rx Impression . 1. Abnormal x-ray with retrocardiac infiltrate compatible with pneumonia, suspect Gram negative. 2. Urinary tract infection. 3. Fever secondary to above. 4. Acute exacerbation of chronic obstructive pulmonary disease. 5. Obesity. 6. Metabolic toxic encephalopathy, present upon admission. 7. Leukocytosis. 8. Polycythemia, suspect secondary to chronic oxygen deficit. Plan . 1. continue current IV antibiotics on DOXY and Rocephin 2. We will obtain arterial blood gas to rule out hypercapnia-- ABG was negative for hypercarbia 3. Nebulized treatments/ supplemental oxygen to keep sats above 90% 4. Possible outpatient polysomnogram suspected LENNY 5. Encourage ambulation 6. pt. is wanting to transfer to [facility]/ insurance coverage RANGEL BA MD Jan 12, 2019 09:38
[2019-01-12 11:20] VITALS: BP 121/70
--- NOTE | 2019-01-12 11:41 | PDOC ---
Infectious Disease Note Vital Sign Vital Signs Vital Signs Date Time Temp Pulse Resp B/P (MAP) Pulse Ox O2 Delivery O2 Flow Rate FiO2 01/12/19 11:20 98.6 66 20 121/70 (87) 98 Nasal Cannula 2.0 98.6 Labs Lab Laboratory Tests Test 01/11/19 11:55 01/11/19 16:34 01/11/19 16:45 01/11/19 21:09 Glucose (Fingerstick) 236 mg/dL (70-99) 289 mg/dL (70-99) 254 mg/dL (70-99) O2 Saturation 94 % (92-99) Arterial Blood pH 7.38 (7.35-7.45) Arterial Blood pCO2 at Patient Temp 45 mmHg (35-46) Arterial Blood pO2 at Patient Temp 70 mmHg (65-108) Arterial Blood HCO3 26 mmol/L (21-28) Arterial Blood Base Excess 0 mmol/L (-3-3) FiO2 2 lpm nc Test 01/12/19 07:10 01/12/19 07:23 White Blood Count 13.0 x10^3/uL (4.0-11.0) Red Blood Count 5.70 x10^6/uL (4.30-5.70) Hemoglobin 17.7 g/dL (13.0-17.5) Hematocrit 53.9 % (39.0-53.0) Mean Corpuscular Volume 95 fL (79-100) Mean Corpuscular Hemoglobin 31 pg (25-35) Mean Corpuscular Hemoglobin Concent 33 g/dL (31-37) Red Cell Distribution Width 14.5 % (11.5-14.5) Platelet Count 170 x10^3/uL (140-400) Neutrophils (%) (Auto) 83 % (31-73) Lymphocytes (%) (Auto) 6 % (24-48) Monocytes (%) (Auto) 9 % (0-9) Eosinophils (%) (Auto) 1 % (0-3) Basophils (%) (Auto) 0 % (0-3) Neutrophils # (Auto) 10.8 x10^3/uL (1.8-7.7) Lymphocytes # (Auto) 0.8 x10^3/uL (1.0-4.8) Monocytes # (Auto) 1.2 x10^3/uL (0.0-1.1) Eosinophils # (Auto) 0.2 x10^3/uL (0.0-0.7) Basophils # (Auto) 0.1 x10^3/uL (0.0-0.2) Sodium Level 131 mmol/L (136-145) Potassium Level 4.6 mmol/L (3.5-5.1) Chloride Level 96 mmol/L (98-107) Carbon Dioxide Level 25 mmol/L (21-32) Anion Gap 10 (6-14) Blood Urea Nitrogen 18 mg/dL (8-26) Creatinine 1.1 mg/dL (0.7-1.3) Estimated GFR (Cockcroft-Gault) 64.7 BUN/Creatinine Ratio 16 (6-20) Glucose Level 221 mg/dL (70-99) Calcium Level 9.3 mg/dL (8.5-10.1) Total Bilirubin 0.8 mg/dL (0.2-1.0) Aspartate Amino Transf (AST/SGOT) 14 U/L (15-37) Alanine Aminotransferase (ALT/SGPT) 18 U/L (16-63) Alkaline Phosphatase 67 U/L (46-116) Total Protein 8.1 g/dL (6.4-8.2) Albumin 3.5 g/dL (3.4-5.0) Albumin/Globulin Ratio 0.8 (1.0-1.7) Glucose (Fingerstick) 212 mg/dL (70-99) Micro Microbiology 01/10/19 Blood Culture - Preliminary, Resulted NO GROWTH AFTER 1 DAY Objective Assessment UTI, POA CAP Leukocytosis Fever Acute encephalopathy, improved AE COPD Diabetes Plan Plan of Care Continue doxycycline for atypical coverage change rocephin to zosyn f/u cultures Repeat CBC in am D/w Dr. Ayoub Thank you Patient seen and examined. Labs, micro, and chart reviewed. 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 #[id number] ESTEPHANIE FAJARDO APRN Jan 12, 2019 11:41 KAYLEE WELLS MD Jan 12, 2019 11:57
[2019-01-12] MEDS ORDERED: PIPERACILLIN/TAZOBACTAM 3.375 GM in IV NORMAL SALINE 50ML 50 ML IV SCH (12:00)
--- NOTE | 2019-01-12 12:53 | CONS ---
DATE OF CONSULTATION: 01/12/2019 REFERRING PHYSICIAN: Dr. Ayoub. REASON FOR CONSULTATION: UTI and sepsis. HISTORY OF PRESENT ILLNESS: This patient is a 78-year-old male with a past medical history of chronic obstructive pulmonary disease, on home oxygen as needed, who was brought to the hospital with confusion. The patient says he was in his usual state of health when apparently his friend came by to drop off some keys and found him not acting himself. A CT of the head showed no acute process. He was found to have an elevated white blood cell count of 12,000 and a fever of 102.0. An urinalysis was positive for wbc's, leukocyte esterase, blood and many bacteria. Urine culture is still in process. Blood cultures are negative to date. A chest x-ray showed bibasilar lower retrocardiac linear atelectasis or possible infiltrate. He is currently on Rocephin and doxycycline. The patient is hoping to be transferred to [facility] soon due to insurance coverage. He complains of frequent urination about every 10 minutes interrupting his sleep. He denies odor or blood in his urine. He denies chills, sweats or body aches. He has mild cough. His nose has been running, but is now starting to dry up since being admitted. He denies chest pain or palpitations. Denies nausea, vomiting or diarrhea. He was last hospitalized in August while vacationing in [facility]. Denies recent antibiotics within the last few months. PAST MEDICAL HISTORY: COPD, on home oxygen as needed. Hypertension, type 2 diabetes. Previous CVA and also obesity. PAST SURGICAL HISTORY: Abdominal surgery. Right ankle repair. SOCIAL HISTORY: The patient lives in an apartment. He lives alone. He is a former smoker. FAMILY HISTORY: Hypertension. ALLERGIES: No known drug allergies. MEDICATIONS: Doxycycline, ceftriaxone, Tylenol, Colace, guaifenesin, DuoNeb, Ativan, Zofran, Maalox. REVIEW OF SYSTEMS: Per HPI, otherwise all other review of systems are negative. PHYSICAL EXAMINATION: VITAL SIGNS: Temperature is 98.6, blood pressure 121/70, heart rate 66, respiratory rate 20, and pulse oximetry 98% on 2 liters oxygen. GENERAL: The patient is sitting on the side of the bed, alert, in no apparent distress. HEENT: Pupils equally round. Oral cavity, oropharynx pink and moist. No lesions. He is hard of hearing. NECK: Supple. LUNGS: Clear to auscultation. HEART: S1 and S2. ABDOMEN: Obese, soft, nontender with bowel sounds present. EXTREMITIES: No gross edema or cyanosis. DERMATOLOGIC: Warm to touch. No signs of rash. NEUROLOGIC: Alert and answering questions appropriately. LABORATORY DATA: Today's WBC 13.0 from 12.1 on admission, hemoglobin 17.7, platelets 170,000. Creatinine 1.1, BUN 18, sodium 131, potassium 4.6. Lactic acid was 1.1, glucose 221, total bilirubin 0.8, AST 14, ALT 18, albumin 3.5. Troponin less than 0.017. BNP 119. Urinalysis per HPI. Urine and blood cultures pending. IMAGING DATA: As per HPI. IMPRESSION: 1. Urinary tract infection present on admission. 2. Community-acquired pneumonia. 3. Leukocytosis. 4. Fever. 5. Acute encephalopathy, improved. 6. Acute exacerbation of chronic obstructive pulmonary disease. 7. Diabetes type 2. PLAN: Continue doxycycline for atypical coverage. We will change Rocephin to Zosyn. Further antibiotic modifications pending culture results. Repeat CBC in a.m. He is waiting to be transferred to [facility]. Thank you, Dr. Ayoub, for asking us to participate in this patient's care. Should you have further questions or concerns, please call. The patient was seen and examined and plan of care implemented by Dr. Luis Wells. KAYLEE WELLS MD DR: QIAN/yolanda JOB#: [id number] / [id number]
--- NOTE | 2019-01-12 15:14 | PDOC3 ---
Discharge Summary Date of Admission: Jan 10, 2019 Date of Discharge: Jan 12, 2019 Follow-Up: 1-2 days Admitting Diagnosis comment: Assessment/Plan Assessment/Plan IMPRESSION ACUTE ALTERED MENTAL STATUS Acute metabolic encephalopathy UTI sepsis Bibasal retrocardiac linear atelectasis or possibly infiltrate. acute hypoxic resp failure ASPIRATION RISK SEPSIS 01/12 soa slow to resolve , still prolonged exp phase, c/o dysuria, TRANSFER TO [facility] due to insurance noncoverage here PLAN ADMIT/ transfer to [facility] IV ANTIBIOTICS, ROCEPHIN, DOXY BLOOD AND URINE CULTURES ID CONSULT PULM CONSULT ST EVAL, SWALLOW neurology consult dvt prophylaxis o2 support Vitals Vitals Vital Signs Date Time Temp Pulse Resp B/P (MAP) Pulse Ox O2 Delivery O2 Flow Rate FiO2 01/12/19 07:00 98.4 77 20 157/84 (108) 96 Nasal Cannula 2.0 98.4 Physical Exam General: Alert, Oriented X3, Cooperative, No acute distress Heart: Regular rate, Normal S1, Normal S2 Lungs: Other (diminished, prolonged exp phase mild wheeze) Abdomen: Normal bowel sounds, Soft Extremities: No cyanosis Skin: No significant lesion FINAL DIAGNOSIS Problems Medical Problems: (1) AMS (altered mental status) Status: Acute (2) Chronic respiratory failure Status: Acute (3) UTI (urinary tract infection) Status: Acute Brief Hospital Course Mr. Jacobsen is a 78 old [sex] who presented with [pneumonia/ ams ] CONDITION AT DISCHARGE: Stable, Comment (guarded) Discharge Medications Current Medications Albuterol/ Ipratropium (Duoneb) 3 ml 1X ONCE NEB Last administered on 01/10/19at 18:49; Start 01/10/19 at 18:45; Stop 01/10/19 at 18:46; Status DC Ceftriaxone Sodium (Rocephin) 1 gm 1X ONCE IVP Last administered on 01/10/19at 20:49; Start 01/10/19 at 20:30; Stop 01/10/19 at 20:35; Status DC Ondansetron HCl (Zofran) 4 mg PRN Q8HRS PRN IV NAUSEA/VOMITING; Start 01/10/19 at 20:45; Stop 01/11/19 at 20:44; Status DC Acetaminophen (Tylenol) 650 mg PRN Q4HRS PRN PO FEVER Last administered on 01/11/19at 14:02; Start 01/10/19 at 20:45; Stop 01/11/19 at 16:43; Status DC Albuterol/ Ipratropium (Duoneb) 3 ml RTQID NEB Last administered on 01/11/19at 20:25; Start 01/11/19 at 08:00; Stop 01/12/19 at 07:59; Status DC Acetaminophen (Tylenol) 1,000 mg 1X ONCE PO Last administered on 01/10/19at 20:51; Start 01/10/19 at 20:45; Stop 01/10/19 at 20:46; Status DC Influenza Virus Vaccine Quadrival (Afluria Quad 2019-20 (3yr Up) Syringe) 0.5 ml ONCE ONCE VAX IM Last administered on 01/11/19at 12:50; Start 01/11/19 at 09:00; Stop 01/11/19 at 09:01; Status DC Ceftriaxone Sodium (Rocephin) 1 gm Q24H IVP Last administered on 01/11/19at 12:39; Start 01/11/19 at 12:00; Stop 01/12/19 at 11:56; Status DC Doxycycline Hyclate 100 mg/ Dextrose 100 ml @ 50 mls/hr Q12HR IV Last administered on 01/12/19at 08:31; Start 01/11/19 at 15:00 Sodium Chloride (Normal Saline Flush) 3 ml QSHIFT PRN IV AFTER MEDS AND BLOOD DRAWS; Start 01/11/19 at 14:15 Acetaminophen (Tylenol) 650 mg PRN Q4HRS PRN PO TEMP OVER 100.4F OR MILD PAIN Last administered on 01/12/19at 14:48; Start 01/11/19 at 14:15 Al Hydroxide/Mg Hydroxide (Mylanta Plus Xs) 30 ml PRN DAILY PRN PO HEARTBURN / GAS; Start 01/11/19 at 14:15 Clonidine HCl (Catapres) 0.1 mg PRN Q6HRS PRN PO SBP>160 OR DBP>90; Start 01/11/19 at 14:15 Docusate Sodium (Colace) 100 mg PRN BID PRN PO CONSTIPATION; Start 01/11/19 at 14:15 Guaifenesin (Robitussin) 200 mg PRN Q4HRS PRN PO COUGH; Start 01/11/19 at 14:15 Lorazepam (Ativan) 0.5 mg PRN Q4HRS PRN PO ANXIETY / AGITATION; Start 01/11/19 at 14:15; Stop 01/11/19 at 16:38; Status DC Insulin Human Lispro (HumaLOG) 0-5 UNITS TIDACHC SQ Last administered on 9at 08:44; Start 01/11/19 at 22:00 Dextrose (Dextrose 50%-Water Syringe) 12.5 gm PRN Q15MIN PRN IV SEE COMMENTS; Start 01/11/19 at 21:30 Piperacillin Sod/ Tazobactam Sod 3.375 gm/Sodium Chloride 50 ml @ 100 mls/hr Q6HRS IV Last administered on 01/12/19at 14:49; Start 01/12/19 at 12:00 Lactobacillus Rhamnosus (Culturelle) 1 cap BID PO ; Start 01/12/19 at 21:00 Active Scripts Active Cephalexin 500 Mg Tablet 1 Tab PO BID Prednisone 20 Mg Tablet 40 Mg PO DAILY 7 Days Benadryl (Diphenhydramine Hcl) 25 Mg Capsule 1 Cap PO QHS Cyclobenzaprine Hcl 5 Mg Tablet 1 Tab PO TID PRN Vital Signs Vital Signs Date Time Temp Pulse Resp B/P (MAP) Pulse Ox O2 Delivery O2 Flow Rate FiO2 01/12/19 11:20 98.6 66 20 121/70 (87) 98 Nasal Cannula 2.0 98.6 Labs Laboratory Tests Test 01/10/19 19:07 01/10/19 19:10 01/10/19 19:11 01/11/19 04:10 Lactic Acid Level 1.1 mmol/L (0.4-2.0) White Blood Count 12.1 x10^3/uL (4.0-11.0) 12.2 x10^3/uL (4.0-11.0) Red Blood Count 5.74 x10^6/uL (4.30-5.70) 5.92 x10^6/uL (4.30-5.70) Hemoglobin 17.8 g/dL (13.0-17.5) 18.6 g/dL (13.0-17.5) Hematocrit 53.3 % (39.0-53.0) 55.6 % (39.0-53.0) Mean Corpuscular Volume 93 fL (79-100) 94 fL (79-100) Mean Corpuscular Hemoglobin 31 pg (25-35) 32 pg (25-35) Mean Corpuscular Hemoglobin Concent 33 g/dL (31-37) 34 g/dL (31-37) Red Cell Distribution Width 14.0 % (11.5-14.5) 14.1 % (11.5-14.5) Platelet Count 176 x10^3/uL (140-400) 147 x10^3/uL (140-400) Neutrophils (%) (Auto) 82 % (31-73) 82 % (31-73) Lymphocytes (%) (Auto) 8 % (24-48) 7 % (24-48) Monocytes (%) (Auto) 9 % (0-9) 10 % (0-9) Eosinophils (%) (Auto) 1 % (0-3) 0 % (0-3) Basophils (%) (Auto) 1 % (0-3) 1 % (0-3) Neutrophils # (Auto) 9.9 x10^3/uL (1.8-7.7) 10.1 x10^3/uL (1.8-7.7) Lymphocytes # (Auto) 1.0 x10^3/uL (1.0-4.8) 0.9 x10^3/uL (1.0-4.8) Monocytes # (Auto) 1.1 x10^3/uL (0.0-1.1) 1.2 x10^3/uL (0.0-1.1) Eosinophils # (Auto) 0.1 x10^3/uL (0.0-0.7) 0.0 x10^3/uL (0.0-0.7) Basophils # (Auto) 0.1 x10^3/uL (0.0-0.2) 0.1 x10^3/uL (0.0-0.2) Sodium Level 135 mmol/L (136-145) 135 mmol/L (136-145) Potassium Level 4.7 mmol/L (3.5-5.1) 4.4 mmol/L (3.5-5.1) Chloride Level 98 mmol/L (98-107) 97 mmol/L (98-107) Carbon Dioxide Level 30 mmol/L (21-32) 29 mmol/L (21-32) Anion Gap 7 (6-14) 9 (6-14) Blood Urea Nitrogen 23 mg/dL (8-26) 21 mg/dL (8-26) Creatinine 1.3 mg/dL (0.7-1.3) 1.3 mg/dL (0.7-1.3) Estimated GFR (Cockcroft-Gault) 53.4 53.4 BUN/Creatinine Ratio 18 (6-20) 16 (6-20) Glucose Level 166 mg/dL (70-99) 191 mg/dL (70-99) Calcium Level 9.5 mg/dL (8.5-10.1) 9.6 mg/dL (8.5-10.1) Total Bilirubin 0.7 mg/dL (0.2-1.0) 1.0 mg/dL (0.2-1.0) Aspartate Amino Transf (AST/SGOT) 13 U/L (15-37) 15 U/L (15-37) Alanine Aminotransferase (ALT/SGPT) 26 U/L (16-63) 26 U/L (16-63) Alkaline Phosphatase 58 U/L (46-116) 65 U/L (46-116) Troponin I Quantitative < 0.017 ng/mL (0.000-0.055) JX-Efc-D-Type Natriuretic Peptide 119 pg/mL (0-449) Total Protein 7.9 g/dL (6.4-8.2) 8.5 g/dL (6.4-8.2) Albumin 4.0 g/dL (3.4-5.0) 4.1 g/dL (3.4-5.0) Albumin/Globulin Ratio 1.0 (1.0-1.7) 0.9 (1.0-1.7) Urine Collection Type Void Urine Color Yellow Urine Clarity Clear Urine pH 6.0 Urine Specific Edwards 1.015 Urine Protein 30 mg/dL (NEG-TRACE) Urine Glucose (UA) Negative mg/dL (NEG) Urine Ketones (Stick) Negative mg/dL (NEG) Urine Blood Large (NEG) Urine Nitrite Negative (NEG) Urine Bilirubin Negative (NEG) Urine Urobilinogen Dipstick 1.0 mg/dL (0.2 mg/dL) Urine Leukocyte Esterase Moderate (NEG) Urine RBC >40 /HPF (0-2) Urine WBC 11-20 /HPF (0-4) Urine Squamous Epithelial Cells Occ /LPF Urine Bacteria Many /HPF (0-FEW) Test 01/11/19 11:55 01/11/19 16:34 01/11/19 16:45 01/11/19 21:09 Glucose (Fingerstick) 236 mg/dL (70-99) 289 mg/dL (70-99) 254 mg/dL (70-99) O2 Saturation 94 % (92-99) Arterial Blood pH 7.38 (7.35-7.45) Arterial Blood pCO2 at Patient Temp 45 mmHg (35-46) Arterial Blood pO2 at Patient Temp 70 mmHg (65-108) Arterial Blood HCO3 26 mmol/L (21-28) Arterial Blood Base Excess 0 mmol/L (-3-3) FiO2 2 lpm nc Test 01/12/19 07:10 01/12/19 07:23 White Blood Count 13.0 x10^3/uL (4.0-11.0) Red Blood Count 5.70 x10^6/uL (4.30-5.70) Hemoglobin 17.7 g/dL (13.0-17.5) Hematocrit 53.9 % (39.0-53.0) Mean Corpuscular Volume 95 fL (79-100) Mean Corpuscular Hemoglobin 31 pg (25-35) Mean Corpuscular Hemoglobin Concent 33 g/dL (31-37) Red Cell Distribution Width 14.5 % (11.5-14.5) Platelet Count 170 x10^3/uL (140-400) Neutrophils (%) (Auto) 83 % (31-73) Lymphocytes (%) (Auto) 6 % (24-48) Monocytes (%) (Auto) 9 % (0-9) Eosinophils (%) (Auto) 1 % (0-3) Basophils (%) (Auto) 0 % (0-3) Neutrophils # (Auto) 10.8 x10^3/uL (1.8-7.7) Lymphocytes # (Auto) 0.8 x10^3/uL (1.0-4.8) Monocytes # (Auto) 1.2 x10^3/uL (0.0-1.1) Eosinophils # (Auto) 0.2 x10^3/uL (0.0-0.7) Basophils # (Auto) 0.1 x10^3/uL (0.0-0.2) Sodium Level 131 mmol/L (136-145) Potassium Level 4.6 mmol/L (3.5-5.1) Chloride Level 96 mmol/L (98-107) Carbon Dioxide Level 25 mmol/L (21-32) Anion Gap 10 (6-14) Blood Urea Nitrogen 18 mg/dL (8-26) Creatinine 1.1 mg/dL (0.7-1.3) Estimated GFR (Cockcroft-Gault) 64.7 BUN/Creatinine Ratio 16 (6-20) Glucose Level 221 mg/dL (70-99) Calcium Level 9.3 mg/dL (8.5-10.1) Total Bilirubin 0.8 mg/dL (0.2-1.0) Aspartate Amino Transf (AST/SGOT) 14 U/L (15-37) Alanine Aminotransferase (ALT/SGPT) 18 U/L (16-63) Alkaline Phosphatase 67 U/L (46-116) Total Protein 8.1 g/dL (6.4-8.2) Albumin 3.5 g/dL (3.4-5.0) Albumin/Globulin Ratio 0.8 (1.0-1.7) Glucose (Fingerstick) 212 mg/dL (70-99) Laboratory Tests Test 01/11/19 16:34 01/11/19 16:45 01/11/19 21:09 01/12/19 07:10 Glucose (Fingerstick) 289 mg/dL (70-99) 254 mg/dL (70-99) O2 Saturation 94 % (92-99) Arterial Blood pH 7.38 (7.35-7.45) Arterial Blood pCO2 at Patient Temp 45 mmHg (35-46) Arterial Blood pO2 at Patient Temp 70 mmHg (65-108) Arterial Blood HCO3 26 mmol/L (21-28) Arterial Blood Base Excess 0 mmol/L (-3-3) FiO2 2 lpm nc White Blood Count 13.0 x10^3/uL (4.0-11.0) Red Blood Count 5.70 x10^6/uL (4.30-5.70) Hemoglobin 17.7 g/dL (13.0-17.5) Hematocrit 53.9 % (39.0-53.0) Mean Corpuscular Volume 95 fL (79-100) Mean Corpuscular Hemoglobin 31 pg (25-35) Mean Corpuscular Hemoglobin Concent 33 g/dL (31-37) Red Cell Distribution Width 14.5 % (11.5-14.5) Platelet Count 170 x10^3/uL (140-400) Neutrophils (%) (Auto) 83 % (31-73) Lymphocytes (%) (Auto) 6 % (24-48) Monocytes (%) (Auto) 9 % (0-9) Eosinophils (%) (Auto) 1 % (0-3) Basophils (%) (Auto) 0 % (0-3) Neutrophils # (Auto) 10.8 x10^3/uL (1.8-7.7) Lymphocytes # (Auto) 0.8 x10^3/uL (1.0-4.8) Monocytes # (Auto) 1.2 x10^3/uL (0.0-1.1) Eosinophils # (Auto) 0.2 x10^3/uL (0.0-0.7) Basophils # (Auto) 0.1 x10^3/uL (0.0-0.2) Sodium Level 131 mmol/L (136-145) Potassium Level 4.6 mmol/L (3.5-5.1) Chloride Level 96 mmol/L (98-107) Carbon Dioxide Level 25 mmol/L (21-32) Anion Gap 10 (6-14) Blood Urea Nitrogen 18 mg/dL (8-26) Creatinine 1.1 mg/dL (0.7-1.3) Estimated GFR (Cockcroft-Gault) 64.7 BUN/Creatinine Ratio 16 (6-20) Glucose Level 221 mg/dL (70-99) Calcium Level 9.3 mg/dL (8.5-10.1) Total Bilirubin 0.8 mg/dL (0.2-1.0) Aspartate Amino Transf (AST/SGOT) 14 U/L (15-37) Alanine Aminotransferase (ALT/SGPT) 18 U/L (16-63) Alkaline Phosphatase 67 U/L (46-116) Total Protein 8.1 g/dL (6.4-8.2) Albumin 3.5 g/dL (3.4-5.0) Albumin/Globulin Ratio 0.8 (1.0-1.7) Test 01/12/19 07:23 Glucose (Fingerstick) 212 mg/dL (70-99) Allergies Allergies Coded Allergies Type Severity Reaction Last Updated Verified No Known Drug Allergies 12/01/16 No Disposition/Orders: Other (transfer to [facility] by ambulance) Patient Instructions d/c planning 35 min RICHARDSON GONZALEZ MD Jan 12, 2019 15:14
[2019-01-12] MEDS ORDERED: DOXY-96 PO (15:18)
[2019-01-12] MEDS ORDERED: INSU100I11 SQ (15:18)
[2019-01-12] MEDS ORDERED: PIPE3.377 IV (15:18)
[2019-01-12] MEDS ORDERED: LACT1CAP19 PO (15:18)
--- NOTE | 2019-01-12 17:35 | NUR ---
Pt accepted at [facility]. Report called to Gaby GIRALDO at . Pt and family notified of transfer and room pt would be going too. Transportation provided by EMS
[2019-01-12] MEDS ORDERED: LACTOBACILLUS RHAMNOSUS GG 1 CAPSULE. PO SCH (21:00)
== END 2019-01-12 17:00 | disposition short-term general hospital (02) | DRG 871 ==
LOC: ER 18:02 → 6 SOUTH 20:11
PROVIDERS: ADMIT Internal Medicine; ATTEND Internal Medicine
PROC: 5A09357 Assistance with Respiratory Ventilation, Less than 24 Consecutive Hours, Continuous Positive Airway Pressure (ICD-10-PCS; principal; 2019-01-11)
DX: A41.9 Sepsis, unspecified organism (principal); J18.9 Pneumonia, unspecified organism; J96.01 Acute respiratory failure with hypoxia; G93.41 Metabolic encephalopathy; J98.11 Atelectasis; N39.0 Urinary tract infection, site not specified; D75.1 Secondary polycythemia; E11.9 Type 2 diabetes mellitus without complications; E66.9 Obesity, unspecified; J43.9 Emphysema, unspecified; Z82.49 Family history of ischemic heart disease and other diseases of the circulatory system; Z86.73 Personal history of transient ischemic attack (TIA), and cerebral infarction without residual deficits; Z87.891 Personal history of nicotine dependence; Z99.81 Dependence on supplemental oxygen; Z68.39 Body mass index [BMI] 39.0-39.9, adult; I11.9 Hypertensive heart disease without heart failure
CPT/HCPCS: 36415; 36600; 70450; 71045; 80053; 81001; 82805; 82962; 83605; 83880; 84484; 85025; 87040; 87086; 87186; 90471; 90686; 93005; 94640; 94760; 96374; J0696; J1815; J2543; J3490; J7620; 92610; 99285-25; G0378

== ENCOUNTER 2021-05-12 05:01 | Emergency (ER) | payer MEDICARE ==
[~2021-05-12] VITALS: Ht 175.3 cm; Wt 117.9 kg
[2021-05-12 05:01] VITALS: BP 130/87
[~2021-05-12 05:01] MED LIST changes: +DOXY-96 PO; +INSU100I11 SQ; +LACT1CAP19 PO; +PIPE3.377 IV
[2021-05-12] MEDS ORDERED: HYDROcodone/APAP 5/325MG 1 TAB TABLET PO ONE (05:15)
[2021-05-12] MEDS ORDERED: NAPROXEN 500 MG TABLET PO ONE (05:15)
[2021-05-12] MEDS ORDERED: HYDR-2759 PO (05:19)
[2021-05-12] MEDS ORDERED: NAPR-683 PO (05:19)
--- NOTE | 2021-05-12 05:21 | PHYS DOC ---
Past Medical History Past Medical History: COPD, CVA, Diabetes-Type II, Hypertension, Other Additional Past Medical Histor: EMPHYSEMA Past Surgical History: Other Additional Past Surgical Histo: R ANKLE Smoking Status: Never Smoker Alcohol Use: Occasionally Drug Use: None General Adult EDM: Chief Complaint: HAND PROBLEM HPI: HPI: Patient is a 80 year old male who is right-hand dominant presents with a chief complaint of right wrist pain. Patient states onset of symptoms on Monday. 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 Since then patient has had increased pain in his right wri st pain with range of motion. Patient has been taking [id number] aspirin with no relief. Patient denies any injuries. Review of Systems: Review of Systems: Constitutional: Denies fever or chills. [] Eyes: Denies change in visual acuity. [] HENT: Denies nasal congestion or sore throat. [] Respiratory: Denies cough or shortness of breath. [] Cardiovascular: Denies chest pain or edema. [] GI: Denies abdominal pain, nausea, vomiting, bloody stools or diarrhea. [] : Denies dysuria. [] Musculoskeletal: Denies back pain positive joint pain. [] Integument: Denies rash. [] Neurologic: Denies headache, focal weakness or sensory changes. [] Endocrine: Denies polyuria or polydipsia. [] Lymphatic: Denies swollen glands. [] Psychiatric: Denies depression or anxiety. [] Heart Score: C/O Chest Pain: N/A Risk Factors: Risk Factors: DM, Current or recent (<one month) smoker, HTN, HLP, family history of CAD, obesity. Risk Scores: Score 0 - 3: 2.5% MACE over next 6 weeks - Discharge Home Score 4 - 6: 20.3% MACE over next 6 weeks - Admit for Clinical Observation Score 7 - 10: 72.7% MACE over next 6 weeks - Early Invasive Strategies Allergies: Allergies: Allergies Coded Allergies Type Severity Reaction Last Updated Verified No Known Drug Allergies 12/01/16 No Physical Exam: PE: Constitutional: Well developed, well nourished, no acute distress, non-toxic appearance. [] HENT: Normocephalic, atraumatic, bilateral external ears normal, oropharynx moist, no oral exudates, nose normal. [] Eyes: PERRLA, EOMI, conjunctiva normal, no discharge. [] Neck: Normal range of motion, no tenderness, supple, no stridor. [] Cardiovascular:Heart rate regular rhythm, no murmur [] Lungs & Thorax: Bilateral breath sounds clear to auscultation [] Abdomen: Bowel sounds normal, soft, no tenderness, no masses, no pulsatile masses. [] Skin: Warm, dry, no erythema, no rash. [] Back: No tenderness, no CVA tenderness. [] Extremities: No tenderness, no cyanosis, no clubbing, ROM intact, no edema. [decreased rom with right wrist, no deformity of right wrist ] Neurologic: Alert and oriented X 3, normal motor function, normal sensory function, no focal deficits noted. [] Psychologic: Affect normal, judgement normal, mood normal. [] EKG: EKG: [] Radiology/Procedures: Radiology/Procedures: [] Course & Med Decision Making: Course & Med Decision Making Pertinent Labs and Imaging studies reviewed. (See chart for details) [] Do not suspect any traumatic injury he denies any trauma therefore did not perform an x-ray. Suspect arthritic changes and pain as the cause. Treated with [place] and naproxen. Patient discharged home with prescriptions for both. Mihaela Disclaimer: Mihaela Disclaimer: This electronic medical record was generated, in whole or in part, using a voice recognition dictation system. Departure Departure Impression: Primary Impression: Wrist pain Disposition: HOME / SELF CARE / HOMELESS Condition: STABLE Referrals: ROCHELLE LAWRENCE MD (PCP) Patient Instructions: Arthritis, Nonspecific, Wrist Pain Scripts Naproxen (NAPROSYN) 500 Mg Tablet 1 TAB PO BID for pain for 30 Days, #60 TAB 0 Refills Prov: VIRGIL MADDEN DO 05/12/21 Hydrocodone/Acetaminophen (Hydrocodone-Acetamin 5-325 mg) 1 Each Tablet 1 EACH PO Q4-6HRS, #14 TAB Prov: VIRGIL MADDEN DO 05/12/21 VIRGIL MADDEN DO May 12, 2021 05:21
== END 2021-05-12 05:32 | disposition home or self-care (01) ==
LOC: ER 05:01
DX: M25.531 Pain in right wrist (principal); J44.9 Chronic obstructive pulmonary disease, unspecified; E11.9 Type 2 diabetes mellitus without complications; I10 Essential (primary) hypertension; Z86.73 Personal history of transient ischemic attack (TIA), and cerebral infarction without residual deficits
CPT/HCPCS: 99283